=== PATIENT | male | born 1960 | race Caucasian/White ===

== ENCOUNTER 2020-10-27 08:40 | Outpatient (REF) | payer OTHER, SELFPAY ==
--- NOTE | ~2020-10-27 | XR_ITS ---
EXAMINATION: XR knee standing BI, XR knee LT 2V CLINICAL INFORMATION: Reason for Exam M25.569 - Pain in unspecified knee COMPARISON: None available at the time of this dictation. TECHNIQUE: frontal, lateral, tunnel and patella sunrise views FINDINGS: BONES: No fracture or dislocation is present. JOINTS: Mild narrowing of joint spaces suggest mild degenerative osteoarthritis. Small knee joint effusion. SOFT TISSUE: Normal XR/XR knee LT 2V IMPRESSION: Mild degenerative osteoarthritis medial more than lateral compartment symmetrically involving both knees. Small knee joint effusion.
--- NOTE | ~2020-10-27 | XR_ITS ---
EXAMINATION: XR knee standing BI, XR knee LT 2V CLINICAL INFORMATION: Reason for Exam M25.569 - Pain in unspecified knee COMPARISON: None available at the time of this dictation. TECHNIQUE: frontal, lateral, tunnel and patella sunrise views FINDINGS: BONES: No fracture or dislocation is present. JOINTS: Mild narrowing of joint spaces suggest mild degenerative osteoarthritis. Small knee joint effusion. SOFT TISSUE: Normal XR/XR knee standing BI IMPRESSION: Mild degenerative osteoarthritis medial more than lateral compartment symmetrically involving both knees. Small knee joint effusion.
== END 2020-10-27 08:41 | disposition home or self-care (01) ==
LOC: HO.HOSX 08:40
PROVIDERS: Visit Provider Physician Assistant
DX: M17.12 Unilateral primary osteoarthritis, left knee (principal)
CPT/HCPCS: 20610; 73560; 73565; J1040

== ENCOUNTER 2020-11-14 06:08 | Outpatient (REF) | payer OTHER, SELFPAY ==
[2020-11-14 11:15] LABS: MANUAL DIFF FLAG NO
[2020-11-14 11:22] LABS: Basophils Percent Auto 0.5 % (0-2); Eosinophils Absolute Auto 0.1 X10*3/uL (0.0-0.4); Eosinophils Percent Auto 2.2 % (0-4); Hematocrit 46.8 % (42-52); Hemoglobin 15.9 g/dl (14.0-18.0); Lymphocytes Absolute Auto 1.5 X10*3/uL (1.2-4.9); Lymphocytes Percent Auto 35.7 % (20-40); Mean Corpuscular Hemoglobin 31.5 pg (27.0-33.0); Mean Corpuscular Volume 92.9 fL (80-98); Mean Platelet Volume 9.5 fL (9.4-12.4); Monocytes Absolute Auto 0.4 X10*3/uL (0.1-1.2); Monocytes Percent Auto 8.8 % (2-11); Neutrophils Absolute Auto 2.2 X10*3/uL (2.0-8.3); Neutrophils Percent Auto 52.8 % (45-73); Platelet Count 248 X10*3/uL (160-400); Red Blood Count 5.04 X10*6/uL (4.60-5.80); Red Cell Distribution Width 12.2 % (11.0-16.0); White Blood Count 4.1 X10*3/uL (4.8-10.8)
[2020-11-14 11:55] LABS: Alanine Aminotransferase 35 U/L (0-40); Albumin Level 4.5 g/dL (3.5-5.0); Alkaline Phosphatase 53 U/L (39-117); Anion Gap 13 (12-20); Aspartate Amino Transferase 20 U/L (5-37); Bilirubin Total 0.7 mg/dL (0.0-1.0); Blood Urea Nitrogen 15 mg/dL (9-16); C Reactive Protein 0.09 mg/dL (< or = 0.50); Calcium 9.1 mg/dL (8.4-10.2); Carbon Dioxide 28 mmol/L (22-29); Chloride 103 mmol/L (96-108); Cholesterol 243 mg/dL; Estimated Glomerular Filt Rate > 60; Glucose Fasting 101 mg/dL (60-99); HDL Cholesterol 51 mg/dL; LDL Cholesterol Calculated 153 mg/dl; Rheumatoid Factor < 15.0 IU/mL (<15.0); Sodium 140 mmol/L (135-145); Triglycerides 197 mg/dL
[2020-11-14 11:56] LABS: Glucose Urine UA NEG (NEG); Leukocyte Esterase Urine NEG (NEG); Nitrite Urine NEG (NEG); PH 5.5 (5.0-8.0); Specific Gravity - Urine >= 1.030 (1.005-1.025); Urine Blood NEG (NEG); Urine Ketones NEG (NEG); Urine Protein NEG (NEG-TRACE)
[2020-11-14 11:58] LABS: Appearance Urine CLOUDY; Color Urine YELLOW
[2020-11-14 12:18] LABS: Prostate Specific Antigen Scr 0.54 ng/mL (<0.05-4.0); TSH reflex Free T4 1.54 uIU/mL (0.32-4.0); Vitamin D 25-OH Total 30.4 ng/mL (>30)
[2020-11-14 12:19] LABS: RBC Urine 0-2 /HPF (0); Squamous Epithelial Cell Urine TRACE /LPF; WBC Urine 0-2 /HPF (0-4)
[2020-11-14 13:01] LABS: Folate 19.9 ng/mL (> or = 4.0); Vitamin B12 419 pg/mL (200-900)
[2020-11-15 09:36] LABS: Lyme Abs Screen <0.90 index
== END 2020-11-14 06:09 | disposition home or self-care (01) ==
LOC: HO.HMGCLDS 06:08
PROVIDERS: PCP Internal Medicine; Visit Provider Internal Medicine
DX: Z00.00 Encounter for general adult medical examination without abnormal findings (principal); Z12.5 Encounter for screening for malignant neoplasm of prostate; M25.50 Pain in unspecified joint; M79.10 Myalgia, unspecified site
CPT/HCPCS: 36415; 80053; 80061; 81001; 82306; 82550; 82607; 82746; 84153; 84443; 85025; 86140; 86431; 86617; 86618

== ENCOUNTER 2021-01-10 13:35 | Outpatient (REF) | payer OTHER, SELFPAY ==
[2021-01-10 16:36] LABS: C Reactive Protein 0.18 mg/dL (< or = 0.50); Rheumatoid Factor < 15.0 IU/mL (<15.0)
[2021-01-10 17:41] LABS: Erythrocyte Sedimentation Rate 5 MM/HR (0-15)
[2021-01-14 15:52] LABS: Anti Nuclear Antibody Screen NEGATIVE (NEGATIVE)
[2021-01-16 08:02] LABS: Testosterone, Free 42.6 pg/mL (35.0-155.0); Testosterone, Total 384 ng/dL (250-1100)
== END 2021-01-10 13:36 | disposition home or self-care (01) ==
LOC: HO.HMGCLDS 13:35
PROVIDERS: PCP Internal Medicine; Visit Provider Internal Medicine
DX: M25.50 Pain in unspecified joint (principal); M79.10 Myalgia, unspecified site; R29.898 Other symptoms and signs involving the musculoskeletal system
CPT/HCPCS: 36415; 84402; 84403; 85652; 86038; 86039; 86140; 86431

== ENCOUNTER 2021-01-17 16:00 | Outpatient (RCR) | payer OTHER, SELFPAY ==
--- NOTE | 2020-11-14 16:13 | MHC.PT.EP ---
[facility] [place] Office [place] Office [place] Office [address] Shreya Anderson [address] [phone] F: [phone] F: [phone] F: [phone] F: [phone] Physical Therapy Plan of Care Date of Evaluation: Date of Surgery: Diagnosis: left knee pain Assessment: 59 y/o male referred to PT with left knee pain. Of note, pt reports other issues that he is concerned about and will see / Earnestine in 2 weeks regarding increasing muscle weakness B LE and worsening balance. He also fell 2 weeks ago 4' off ladder landing on his L side resulting in back pain and R foot numbness that is gradually improving. His knee pain and B LE weakness is resulting in difficulty with stairs, stepping over objects, walking, completing golf swing, and getting on/off floor. Examination shows decreased B hip strength, impaired balance especially with eyes closed, 3 beats of ankle clonus, coordination WNL, and impaired gait pattern. Recommend PT 2x/week for 5 weeks to address impairments, implement HEP, and optimize functional mobility. Frequency and Duration: The patient will be seen 2x/week for 5 weeks Short Term Goals: 3 weeks -I with HEP -Pt will improve hip strength by one MMT grade Medical Reception Goals: 5 weeks - I with HEP and self management of sx -pt will be able to balance wiht feet together and eyes closed > 60seconds with min-no sway -Pt will be able to ascend/descend stairs without railing Treatment Plan: Modalities to reduce pain, spasms and effusion. Manual therapy to restore motion and function. Therapeutic exercise to improve strength and flexibility. Neuromuscular re-education for posture and balance. Therapeutic activities to return to functional activities of daily living. Electronically signed by: Yanira Ho PT Please sign and return to therapist. Thank you for your referral.
--- NOTE | 2020-11-30 10:34 | MHC.PT.DC ---
[facility] [place] Office [place] Office [place] Office [address] Shreya Anderson 140 [facility] [phone] F: [phone] F: [phone] F: [phone] F: [phone] Physical Therapy Discharge Report Diagnosis: left knee pain Date of Surgery: Date of Evaluation: 11/14/20 Date of Discharge: 11/30/20 Treatments to Date: 3 Cancellations to Date: 0 No Shows to Date: 0 Discharge Status: Independent with HEP Patient Elected to Stop Discharge Summary: Pt called to self d/c reporting insurance co-pay is too much at this time. He will continue with HEP. Electronically signed by: Yanira Ho PT Please sign and return to therapist. Thank you for your referral.
--- NOTE | 2021-05-23 12:51 | MHC.PT.DC ---
[facility] [place] Office [place] Office [place] Office [address] Shreya Anderson 140 [facility] [phone] F: [phone] F: [phone] F: [phone] F: [phone] Physical Therapy Discharge Report Diagnosis: left knee pain Date of Surgery: Date of Evaluation: 11/14/20 Date of Discharge: 05/23/21 Treatments to Date: 11 Cancellations to Date: 0 No Shows to Date: 0 Discharge Status: Improved Function Independent with HEP Discharge Summary: D/c to I HEP and improved function Electronically signed by: Yanira Ho PT Please sign and return to therapist. Thank you for your referral.
== END 2021-05-23 12:51 | disposition home or self-care (01) ==
LOC: HO.PT 16:00
PROVIDERS: Visit Provider Physician Assistant
DX: M17.12 Unilateral primary osteoarthritis, left knee (principal); M25.569 Pain in unspecified knee
CPT/HCPCS: 97110; 97112; 97161; 97530

== ENCOUNTER 2021-07-16 16:00 | Outpatient (RCR) | payer OTHER, SELFPAY | END 2021-07-26 11:16 | disposition home or self-care (01) | LOC: HO.PT 16:00 | PROVIDERS: PCP Internal Medicine; Visit Provider Neurological Surgery | DX: M47.816 Spondylosis without myelopathy or radiculopathy, lumbar region (principal) | CPT/HCPCS: 97014; 97110; 97161; 97530 ==

== ENCOUNTER → 2021-11-20 13:15 | Outpatient (BNVA) | payer OTHER, SELFPAY | PROVIDERS: PCP Internal Medicine; Visit Provider Physician Assistant | DX: M17.12 Unilateral primary osteoarthritis, left knee (principal) | CPT/HCPCS: 20610; J1040 ==

== ENCOUNTER 2022-01-24 06:04 | Outpatient (REF) | payer OTHER, SELFPAY ==
[2022-01-24 11:22] LABS: MANUAL DIFF FLAG NO
[2022-01-24 11:31] LABS: Basophils Percent Auto 0.7 % (0-2); Eosinophils Absolute Auto 0.3 X10*3/uL (0.0-0.4); Eosinophils Percent Auto 6.7 % (0-4); Hematocrit 44.7 % (42.0-52.0); Hemoglobin 15.4 g/dl (14.0-18.0); Imm Gran Abs Auto 0.01 X10*3/uL (0.00-0.03); Imm Gran Pct Auto 0.2 % (0.0-0.4); Lymphocytes Absolute Auto 1.6 X10*3/uL (1.2-4.9); Mean Corpuscular HGB Conc 34.5 g/dl (31.0-36.0); Mean Corpuscular Hemoglobin 32.3 pg (27.0-33.0); Mean Corpuscular Volume 93.7 fL (80.0-98.0); Monocytes Absolute Auto 0.4 X10*3/uL (0.1-1.2); Monocytes Percent Auto 9.7 % (2-11); Neutrophils Percent Auto 46.7 % (45-73); Platelet Count 246 X10*3/uL (160-400); Red Blood Count 4.77 X10*6/uL (4.60-5.80); Red Cell Distribution Width 12.3 % (11.0-16.0); White Blood Count 4.3 X10*3/uL (4.8-10.8)
[2022-01-24 11:54] LABS: Alanine Aminotransferase 26 U/L (0-40); Albumin Level 4.3 g/dL (3.5-5.0); Alkaline Phosphatase 52 U/L (39-117); Anion Gap 11 (12-20); Aspartate Amino Transferase 18 U/L (5-37); Bilirubin Total 0.7 mg/dL (0.0-1.0); Blood Urea Nitrogen 16 mg/dL (9-16); Carbon Dioxide 28 mmol/L (22-29); Chloride 105 mmol/L (96-108); Cholesterol 235 mg/dL; Estimated Glomerular Filt Rate > 60; Glucose Fasting 97 mg/dL (60-99); HDL Cholesterol 50 mg/dL; LDL Cholesterol Calculated 157 mg/dl; Potassium 4.2 mmol/L (3.3-5.1); Sodium 140 mmol/L (135-145); Total Protein 6.8 g/dL (6.5-8.0); Triglycerides 144 mg/dL
[2022-01-24 12:17] LABS: PSA,Total (Free>4and<10) 0.48 ng/mL (0.00-4.00)
== END 2022-01-24 06:05 | disposition home or self-care (01) ==
LOC: HO.HMGCLDS 06:04
PROVIDERS: Visit Provider Internal Medicine
DX: Z00.00 Encounter for general adult medical examination without abnormal findings (principal); Z12.5 Encounter for screening for malignant neoplasm of prostate
CPT/HCPCS: 36415; 80053; 80061; 84153; 85025

== ENCOUNTER 2022-03-10 11:17 | Emergency (ER) | payer OTHER, SELFPAY ==
--- NOTE | ~2022-03-10 | CT_ITS ---
CT HEAD WITHOUT IV CONTRAST CT CERVICAL SPINE WITHOUT IV CONTRAST INDICATION: Fall downstairs. COMPARISON: None available. TECHNIQUE: Multidetector CT acquisitions of the head and cervical spine were obtained without IV contrast. Multiplanar reformats were acquired and utilized for image interpretation. This CT examination was performed using dose optimization techniques as appropriate, variously including the following: *Automated exposure control *Adjustment of mA and/or kV according to patient size (this includes techniques or standardized protocols for targeted exams where dose is matched to indication/reason for exam; i.e. extremities or head) *Use of iterative reconstruction technique FINDINGS: HEAD: There is no intracranial hemorrhage, hydrocephalus, extra-axial surface collection, midline shift, or other herniation pattern. Ghosh to white matter differentiation is diffusely maintained without evidence of an evolved acute territorial infarct. The basilar cisterns are preserved. No significant soft tissue abnormality. No acute osseous abnormality. The paranasal sinuses and the mastoid air cells are well aerated. CERVICAL SPINE: Straightening the cervical lordosis. ACDF changes at C4-C5. At the C3-C4 junctional level, a central disc protrusion likely flattens the ventral cord and advanced spondylitic changes result in severe right-sided bony foraminal stenosis. Surgical hardware is intact and there is no evidence of hardware loosening. 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 No acute fractures no acute subluxations. Hypertrophic degenerative changes involving the atlantodental interval. Craniocervical junction is unremarkable. CT/CT head/brain wo con IMPRESSION: - No acute intracranial findings. - No acute osseous findings within the cervical spine. ACDF changes at C4-C5. At the C3-C4 junctional level, a central disc protrusion likely flattens the ventral cord and advanced spondylitic changes result in severe right-sided bony foraminal stenosis.
--- NOTE | ~2022-03-10 | CT_ITS ---
EXAMINATION: CT CHEST, ABDOMEN, AND PELVIS WITH CONTRAST CLINICAL INFORMATION: Left upper quadrant abdominal pain questionable splenic laceration, ribs trauma questionable fracture COMPARISON: CT scan of abdomen from 11/23/2018 TECHNIQUE: Multidetector volumetric CT imaging of the chest, abdomen, and pelvis was obtained after the administration of 85 mL of Omnipaque 300 intravenous contrast without immediate adverse reactions. Axial MIP volume rendering provided. Sagittal and coronal reformatted images were obtained. This CT examination was performed using dose optimization techniques as appropriate, variously including the following: *Automated exposure control *Adjustment of mA and/or kV according to patient size (this includes techniques or standardized protocols for targeted exams where dose is matched to indication/reason for exam; i.e. extremities or head) *Use of iterative reconstruction technique DLP: 963 mGy-cm FINDINGS: LUNGS: There is 0.3 cm nodule seen in the right upper lobe adjacent to the minor fissure on image 78 series 11, other 0.1 cm nodule seen in the right upper lobe adjacent to the major fissure on image 88 series 11, 0.2 mm nodule seen on image 95 series 11 there is a calcified subpleural nodule in the right lower lobe on image 98 series 11 MEDIASTINUM: The mediastinum appears unremarkable. PLEURA: There is no pleural effusion. No pleural mass or thickening. AXILLA: No lymphadenopathy. LIVER, GALLBLADDER, AND BILIARY TREE: The liver appears unremarkable in size, shape, and attenuation. No focal hepatic lesion or biliary ductal dilatation is appreciated. Unremarkable appearance of the gallbladder. PANCREAS: Unremarkable SPLEEN: Unremarkable ADRENAL GLANDS: Unremarkable KIDNEYS AND URETERS: The kidneys appear unremarkable in size, shape, and attenuation. No hydronephrosis, hydroureter, or calculi seen. BLADDER: Unremarkable GASTROINTESTINAL TRACT: The small and large bowel appear unremarkable. ABDOMINAL WALL: No significant hernia is appreciated. LYMPH NODES: No evidence of adenopathy by size criteria. VASCULAR: Unremarkable. PELVIC VISCERA: Unremarkable OSSEOUS STRUCTURES: There are mild degenerative changes in lumbar spine and there is bone island in L3 vertebral body and mammogram bone island seen and T9 vertebral body on the. CT/CT abdomen pelvis w con IMPRESSION: Lung nodules as described. No evidence of fractures. Unremarkable abdomen.
--- NOTE | ~2022-03-10 | CT_ITS ---
CT HEAD WITHOUT IV CONTRAST CT CERVICAL SPINE WITHOUT IV CONTRAST INDICATION: Fall downstairs. COMPARISON: None available. TECHNIQUE: Multidetector CT acquisitions of the head and cervical spine were obtained without IV contrast. Multiplanar reformats were acquired and utilized for image interpretation. This CT examination was performed using dose optimization techniques as appropriate, variously including the following: *Automated exposure control *Adjustment of mA and/or kV according to patient size (this includes techniques or standardized protocols for targeted exams where dose is matched to indication/reason for exam; i.e. extremities or head) *Use of iterative reconstruction technique FINDINGS: HEAD: There is no intracranial hemorrhage, hydrocephalus, extra-axial surface collection, midline shift, or other herniation pattern. Ghosh to white matter differentiation is diffusely maintained without evidence of an evolved acute territorial infarct. The basilar cisterns are preserved. No significant soft tissue abnormality. No acute osseous abnormality. The paranasal sinuses and the mastoid air cells are well aerated. CERVICAL SPINE: Straightening the cervical lordosis. ACDF changes at C4-C5. At the C3-C4 junctional level, a central disc protrusion likely flattens the ventral cord and advanced spondylitic changes result in severe right-sided bony foraminal stenosis. Surgical hardware is intact and there is no evidence of hardware loosening. 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 No acute fractures no acute subluxations. Hypertrophic degenerative changes involving the atlantodental interval. Craniocervical junction is unremarkable. CT/CT cervical spine wo con IMPRESSION: - No acute intracranial findings. - No acute osseous findings within the cervical spine. ACDF changes at C4-C5. At the C3-C4 junctional level, a central disc protrusion likely flattens the ventral cord and advanced spondylitic changes result in severe right-sided bony foraminal stenosis.
--- NOTE | 2022-03-10 11:25 | ED.GENADULT ---
HPI - General Adult General Stated complaint: L rib pain ? Fracture Time Seen by Provider: 03/10/22 11:25 Source: patient Mode of arrival: ambulatory Limitations: no limitations Related Data Home Medications Medication Instructions Recorded Confirmed naproxen 500 mg tablet 500 mg PO BID PRN 01/10/22 01/10/22 Allergies Allergy/AdvReac Type Severity Reaction Status Date / Time No Known Allergies Allergy Verified 01/10/22 09:58 [No Known Allergies*] PMFSH Past Medical History Medical History Annual physical exam Arthralgia Cervical stenosis of spine Cluster headache Hyperlipidemia Leg weakness, bilateral Myalgia Surgical History Hx of neck surgery Family History Family History Mother No problems noted. Father No problems noted. Social History Social History Housing: House Alcohol intake: current Patient Tobacco Use Status: Never used Tobacco e-Cigarette/Vaping Use: Never Used Second Hand Smoke Exposure: No Current occupational status: employed Current occupation: [employer] Cognitive needs: No Hearing needs: No Vision needs: No Discharge Plan Discharge Prescriptions: No Action naproxen 500 mg tablet 500 mg PO BID PRN
[2022-03-10 11:31] VITALS: BP 165/89; PULSE 78; RESP 18; TEMP 36.7; O2SAT 98; BMI 27.1
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
--- NOTE | 2022-03-10 11:48 | ECG_ITS ---
Test Reason : FALL Blood Pressure : / mmHG Vent. Rate : 063 BPM Atrial Rate : 063 BPM P-R Int : 196 ms QRS Dur : 110 ms QT Int : 396 ms P-R-T Axes : 040 -23 012 degrees QTc Int : 405 ms Normal sinus rhythm Inferior infarct , age undetermined Abnormal ECG No previous ECGs available Referred By: Edgar Martinez Electronically Signed By:GASTON MCMAHON
[2022-03-10] MEDS: 0.9 % Sodium Chloride 1,000 ML 999 ML IV (12:10)
[2022-03-10 12:11] LABS: MANUAL DIFF FLAG NO
[2022-03-10 12:12] LABS: Basophils Percent Auto 0.6 % (0-2); Eosinophils Absolute Auto 0.1 X10*3/uL (0.0-0.4); Eosinophils Percent Auto 1.1 % (0-4); Hematocrit 46.3 % (42.0-52.0); Hemoglobin 16.1 g/dl (14.0-18.0); Imm Gran Abs Auto 0.02 X10*3/uL (0.00-0.03); Imm Gran Pct Auto 0.3 % (0.0-0.4); Lymphocytes Absolute Auto 1.3 X10*3/uL (1.2-4.9); Mean Corpuscular HGB Conc 34.8 g/dl (31.0-36.0); Mean Corpuscular Hemoglobin 31.8 pg (27.0-33.0); Mean Corpuscular Volume 91.3 fL (80.0-98.0); Mean Platelet Volume 9.4 fL (9.4-12.4); Monocytes Absolute Auto 0.5 X10*3/uL (0.1-1.2); Monocytes Percent Auto 7.4 % (2-11); Neutrophils Absolute Auto 4.4 x10*3/uL (2.0-8.3); Neutrophils Percent Auto 69.6 % (45-73); Platelet Count 231 X10*3/uL (160-400); Red Blood Count 5.07 X10*6/uL (4.60-5.80); Red Cell Distribution Width 12.3 % (11.0-16.0); White Blood Count 6.3 X10*3/uL (4.8-10.8)
[2022-03-10 12:19] LABS: Prothrombin Time 11.1 SEC (10.0-13.1)
[2022-03-10 12:22] LABS: Partial Thromboplastin Time 30.4 SEC (26.0-36.4)
[2022-03-10 12:27] LABS: Alanine Aminotransferase 26 U/L (0-40); Albumin Level 4.4 g/dL (3.5-5.0); Alkaline Phosphatase 55 U/L (39-117); Anion Gap 13 (12-20); Aspartate Amino Transferase 17 U/L (5-37); Bilirubin Total 0.4 mg/dL (0.0-1.0); Blood Urea Nitrogen 14 mg/dL (9-16); Calcium 9.4 mg/dL (8.4-10.2); Carbon Dioxide 27 mmol/L (22-29); Chloride 106 mmol/L (96-108); Creatinine Clr Calc Pharmacy 107.2; Estimated Glomerular Filt Rate > 60; Glucose Random 127 mg/dL (60-115); Potassium 3.9 mmol/L (3.3-5.1); Sodium 142 mmol/L (135-145)
[2022-03-10 12:33] LABS: Troponin-I High Sensitivity < 3.5 ng/L (<3.5-35.0)
[2022-03-10] MEDS: oxyCODONE HCl Immed Release 5 MG TABLET PO (13:11)
[2022-03-10] MEDS: iohexoL 350 MG/ML 75 ML INFUS..BTL 85 ML IV (13:16)
[2022-03-10 14:12] VITALS: BP 148/86; PULSE 63; RESP 18; TEMP 36.7; O2SAT 98
[2022-03-10] MEDS: Ketorolac Tromethamine 30 MG/ML VIAL IVPUSH (14:25)
== END 2022-03-10 15:31 | disposition home or self-care (01) ==
PROVIDERS: Physician Assistant; Emergency Provider Emergency Medicine; PCP Internal Medicine
DX: S20.213A Contusion of bilateral front wall of thorax, initial encounter (principal); R07.89 Other chest pain; R51.9 Headache, unspecified; M54.2 Cervicalgia; R10.9 Unspecified abdominal pain; M54.6 Pain in thoracic spine; X58.XXXA Exposure to other specified factors, initial encounter; Y93.9 Activity, unspecified; Y92.9 Unspecified place or not applicable; Y99.9 Unspecified external cause status; Z79.899 Other long term (current) drug therapy
CPT/HCPCS: 36415; 70450; 71260; 72125; 74177; 80053; 84484; 85025; 85610; 85730; 93005; 96365; 96375; 99284; J1885; Q9967

== ENCOUNTER → 2022-06-07 15:15 | Outpatient (BNVA) | payer OTHER, SELFPAY | PROVIDERS: PCP Internal Medicine; Visit Provider Physician Assistant | DX: M17.12 Unilateral primary osteoarthritis, left knee (principal) | CPT/HCPCS: 20610; J1040 ==

== ENCOUNTER 2022-06-18 06:20 | Outpatient (REF) | payer OTHER, SELFPAY ==
[2022-06-18 12:07] LABS: Alanine Aminotransferase 24 U/L (0-40); Albumin Level 4.3 g/dL (3.5-5.0); Alkaline Phosphatase 55 U/L (39-117); Anion Gap 13 (12-20); Aspartate Amino Transferase 17 U/L (5-37); Bilirubin Total 0.5 mg/dL (0.0-1.0); Blood Urea Nitrogen 13 mg/dL (9-16); Calcium 9.2 mg/dL (8.4-10.2); Carbon Dioxide 27 mmol/L (22-29); Chloride 104 mmol/L (96-108); Cholesterol 235 mg/dL; Estimated Glomerular Filt Rate > 60; Glucose Fasting 101 mg/dL (60-99); HDL Cholesterol 58 mg/dL; LDL Cholesterol Calculated 149 mg/dl; Potassium 4.3 mmol/L (3.3-5.1); Sodium 140 mmol/L (135-145); Total Protein 6.7 g/dL (6.5-8.0); Triglycerides 143 mg/dL
[2022-06-18 13:23] LABS: Estimated Average Glucose 103 mg/dL; Hemoglobin A1c % 5.2 %
== END 2022-06-18 06:21 | disposition home or self-care (01) ==
LOC: HO.HMGCLDS 06:20
PROVIDERS: PCP Internal Medicine; Visit Provider Internal Medicine
DX: R73.9 Hyperglycemia, unspecified (principal); E78.5 Hyperlipidemia, unspecified
CPT/HCPCS: 36415; 80053; 80061; 83036

== ENCOUNTER 2022-07-09 18:02 | Outpatient (REF) | payer OTHER, SELFPAY ==
--- NOTE | ~2022-07-09 | MR_ITS ---
EXAMINATION: MR KNEE WITHOUT CONTRAST, LEFT CLINICAL INFORMATION: Left knee pain, swelling. Osteoarthritis. COMPARISON: Left knee radiographs dated 10/27/2020. TECHNIQUE: MRI of the knee without contrast was performed using routine sequences on a high-field scanner. FINDINGS: MENISCI: Medial Meniscus: Attenuation and irregularity of the posterior horn and root, consistent with irregular inner margin tearing. The meniscal body is medially extruded with a superiorly displaced meniscal flap measuring up to 1.0 cm in craniocaudal dimension. There is peripheral longitudinal tearing contacting both the femoral and tibial articular surfaces. Lateral Meniscus: Focal inner margin oblique tear of the meniscal body and posterior horn. Fraying of the anterior root. LIGAMENTS: Cruciate: Diffuse thickening and increased T2 signal throughout the anterior cruciate ligament with mild degenerative cystic change in the tibial tuberosity, consistent with mucoid degeneration. Intact posterior cruciate ligament. Collateral: Intact. EXTENSOR MECHANISM: Superior patellar enthesophytes. Intact quadriceps and patellar tendons. ARTICULAR CARTILAGE/BONE: Patellofemoral Compartment: Mild patellar articular cartilage signal heterogeneity. Central trochlear signal heterogeneity and surface irregularity extending to the medial trochlea. Small marginal osteophytes. Medial Compartment: Mild weightbearing articular cartilage signal heterogeneity and surface irregularity with small marginal osteophytes. Lateral Compartment: Minimal lateral tibial plateau articular cartilage thinning with near full-thickness loss posteriorly. Tiny marginal osteophytes. JOINT FLUID AND BURSAE: Small joint effusion. MR/MR knee LT wo con IMPRESSION: 1. Irregular inner margin tearing of the medial meniscus posterior horn and root with medial extrusion of the meniscal body and a superiorly displaced meniscal flap. Peripheral longitudinal tearing contacting both the femoral and tibial articular surfaces. 2. Focal inner margin oblique tear of the lateral meniscal body and posterior horn with fraying of the anterior root. 3. Mucoid degeneration of the anterior cruciate ligament. 4. Mild tricompartmental osteoarthritis. Small joint effusion.
== END 2022-07-09 18:03 | disposition home or self-care (01) ==
LOC: HO.MRI 18:02
PROVIDERS: Visit Provider Physician Assistant
DX: M17.12 Unilateral primary osteoarthritis, left knee (principal)
CPT/HCPCS: 73721

== ENCOUNTER → 2022-08-01 15:29 | Outpatient (BNVA) | payer OTHER, SELFPAY | PROVIDERS: PCP Internal Medicine; Visit Provider Orthopaedic Surgery | DX: Z13.89 Encounter for screening for other disorder (principal) ==

== ENCOUNTER → 2022-10-14 14:59 | Outpatient (BNVA) | payer OTHER, SELFPAY | PROVIDERS: PCP Internal Medicine; Visit Provider Physician Assistant | DX: Z13.89 Encounter for screening for other disorder (principal) ==

== ENCOUNTER 2022-10-30 06:04 | Day surgery (SDC) | payer OTHER, SELFPAY ==
[2022-10-24 15:31] VITALS: BMI 27.6
[2022-10-25 10:01] VITALS: BMI 27.5
--- NOTE | 2022-10-29 08:54 | P.CONAN_ITS ---
Documented by User: Thuy Lynch NP 10/29/22 08:57 HPI - Anesthesia Eval Consult details Narrative: 61yo M for Left Knee Arthroscopy PMFSH Active Problems Active Problems: All Active Problems (Updated 10/07/22 @ 12:22 by Rowan Colby MD) Knee pain (Acute) Osteoarthritis of left knee (Acute) Hx of colonoscopy (Acute) Hyperglycemia (Acute) Tear of meniscus of left knee (Acute) Internal derangement of left knee (Acute) Abnormal EKG (Acute) Cluster headache (Acute) Cervical stenosis of spine (Acute) Hyperlipidemia (Acute) Leg weakness, bilateral (Acute) Arthralgia (Acute) Myalgia (Acute) Annual physical exam (Acute) Past Medical History Medical History Annual physical exam Arthralgia Cervical stenosis of spine Cluster headache Hyperlipidemia Leg weakness, bilateral Myalgia Family History Family History Mother No problems noted. Father No problems noted. Surgical History Surgical History (Updated 10/25/22 @ 10:00 by Marlys Lynch RN) History of bilateral carpal tunnel release Hx of neck surgery Social History Social History Housing: House Are you a primary client care specialist to a significant other at home: No Do you presently have visiting nurse or other home services: No Alcohol intake: current Patient Tobacco Use Status: Never used Tobacco e-Cigarette/Vaping Use: Never Used Second Hand Smoke Exposure: No Use of substances other than those prescribed or required for medical reasons: No Have you been hit, kicked, punched, or otherwise hurt by someone within the past year? If so, by whom?: No Are you DNR?: No Advance Directives: No Advance Directives Information Provided: Yes Advance Directives on File: No Recently lost weight without trying: No Nutrition Risks: No Nutritional Risk Poor oral hygiene: No Current occupational status: employed Current occupation: [employer] [place]/ right hand dominant Cognitive needs: No Hearing needs: No Vision needs: No Meds Allergies Allergy/AdvReac Type Severity Reaction Status Date / Time No Known Allergies Allergy Verified 10/14/22 15:07 [No Known Allergies*] Home Medications Medication Instructions Recorded Confirmed Last Taken Type verapamil 240 mg 24 hr 480 mg PO BID PRN Headache 10/07/22 10/25/22 Unknown History capsule,extended release Exam Exam Date and Time: October 29, 2022 0854 Height,Weight and Vital Signs: Height 5 ft 10 in Weight 87.09 kg Pertinent Lab Results Pertinent Lab Results: Laboratory Tests 03/10/22 06/18/22 12:04 06:30 WBC 6.3 Hgb 16.1 Hct 46.3 Plt Count 231 Sodium 140 Potassium 4.3 Chloride 104 Carbon Dioxide 27 BUN 13 Creatinine 0.80 Assessment and Plan Assessment Anesthesia Assessment: Chart Reviewed Documented by User: Angely Toney MD 10/30/22 08:01 [facility] Past Medical History Medical History Annual physical exam Arthralgia Cervical stenosis of spine Cluster headache Hyperlipidemia Leg weakness, bilateral Myalgia Family History Family History Mother No problems noted. Father No problems noted. Family history of problems with anesthesia: No Surgical History Surgical History (Updated 10/25/22 @ 10:00 by Marlys Lynch RN) History of bilateral carpal tunnel release Hx of neck surgery History of Problems with Anesthesia: No Social History Social History Housing: House Are you a primary client care specialist to a significant other at home: No Do you presently have visiting nurse or other home services: No Alcohol intake: current Patient Tobacco Use Status: Never used Tobacco e-Cigarette/Vaping Use: Never Used Second Hand Smoke Exposure: No Use of substances other than those prescribed or required for medical reasons: No Have you been hit, kicked, punched, or otherwise hurt by someone within the past year? If so, by whom?: No Are you DNR?: No Advance Directives: No Advance Directives Information Provided: Yes Advance Directives on File: No Recently lost weight without trying: No Nutrition Risks: No Nutritional Risk Poor oral hygiene: No Current occupational status: employed Current occupation: [employer] [place]/ right hand dominant Cognitive needs: No Hearing needs: No Vision needs: No Meds Allergies Allergy/AdvReac Type Severity Reaction Status Date / Time No Known Allergies Allergy Verified 10/14/22 15:07 [No Known Allergies*] Home Medications Medication Instructions Recorded Confirmed Last Taken Type verapamil 240 mg 24 hr 480 mg PO BID PRN Headache 10/07/22 10/25/22 Unknown History capsule,extended release Exam Airway Mallampati Class: II TM Dist: >3cm Neck ROM: Full Heart: rrr Lungs: cta Assessment and Plan Assessment Anesthesia Assessment: Anesthesia Plan Discussed Final Anesthetic Review Family History of Problems with Anesthesia: No History of Problems with Anesthesia: No NPO: Yes ASA Class: II and III Final Preanesthetic Review: No Changes in Pt Med Stat, Consent Obtained/Reviewed and Anes Risks/Benef Reviewed Patient Risk: Low Procedure Risk: Low Anesthetic Plan Anesthetic Plan: GA Disposition: Standard PACU
[2022-10-30 06:17] VITALS: BP 145/83; PULSE 63; RESP 18; TEMP 36.1; O2SAT 99
[2022-10-30] MEDS: Lactated Ringers 1,000 ML 100 ML IVCONT (06:37)
[2022-10-30 08:38] VITALS: BP 140/81; PULSE 76; RESP 16; TEMP 36.7; O2SAT 98
[2022-10-30 08:43] VITALS: BP 134/77; PULSE 66; RESP 16; O2SAT 96
[2022-10-30 08:48] VITALS: BP 135/90; PULSE 68; RESP 16; O2SAT 98
[2022-10-30 08:53] VITALS: BP 136/90; PULSE 64; RESP 16; O2SAT 97
[2022-10-30] MEDS: oxyCODONE HCl Immed Release 5 MG TABLET PO (09:03)
[2022-10-30 09:08] VITALS: BP 125/70; PULSE 61; RESP 16; TEMP 36.6; O2SAT 97
--- NOTE | 2022-10-30 16:13 | P.BOP_ITS ---
Brief Operative Note Date of Service: 10/30/22 Pre-op diagnosis: Left knee MMT Post-op diagnosis: other (Left knee MMT and knee OA) Procedure: Left knee partial medial meniscectomy and chondroplasty. Surgeon: Avni James MD Anesthesia: GETA Was an Stringer Machine Tender used for this Procedure?: No Estimated blood loss (mL): 5 Tourniquet time (min): 20 IV fluids (mL): 500 Pathology: none sent Condition: stable Disposition: PACU
--- NOTE | 2022-10-31 15:07 | W.PM.OPN ---
Operative Note Operative Note Date of Service: 10/30/22 Narrative: Date of Service: 10/30/22 Pre-op diagnosis: Left knee MMT Post-op diagnosis: other (Left knee MMT and knee OA) Procedure: Left knee partial medial meniscectomy and chondroplasty. Surgeon: Avni James MD Anesthesia: GETA Was an Emergency Medicine used for this Procedure?: No Estimated blood loss (mL): 5 Tourniquet time (min): 20 IV fluids (mL): 500 Pathology: none sent Condition: stable Disposition: PACU Procedure in detail: Patient was brought to the operating room placed supine on the arthroscopic table and prepped and draped in standard sterile fashion. A time-out was called to identify proper site proper procedure proper surgeon and IV antibiotics per weight were administered. I began by exsanguinating the limb and insufflating tourniquet to 300 mm Hg. Then made a standard anterolateral stab incision. knee was insufflated with water and 30 degree arthroscope was placed. There was grade 1 fibrillations of the patella but overall suprapatellar pouch was plane and the gutters were clean. I descended into the medial compartment where I made my medial portal under direct visualization. There was obvious of complex tear of the body and posterior horn of the medial meniscus. The oot was intact and there was grade 1 changes with some scattered grade 2 changes throughout the medial compartment. I used a combination of biter shaver and cautery to remove unstable portions of the meniscus. Proximally 40% meniscal volume was removed. Once I was happy with this the ACL was examined and found to be intact and the lateral compartment also was without the need for intervention. I then removed all instrumentation and closed the portals with skin glue. 25 mL of 2% Marcaine with epinephrine was injected into the joint and the surrounding soft tissues. Patient was then placed in sterile dressing extubated brought recovery room stable condition. There were no known complications.
== END 2022-10-30 10:08 | disposition home or self-care (01) ==
LOC: HO.SSS 06:04
PROVIDERS: PCP Internal Medicine; Visit Provider Orthopaedic Surgery
PROC: (CPT 29870; principal; 2022-10-30 07:30)
DX: S83.232A Complex tear of medial meniscus, current injury, left knee, initial encounter (principal); M17.12 Unilateral primary osteoarthritis, left knee; M23.92 Unspecified internal derangement of left knee; R53.1 Weakness; M79.10 Myalgia, unspecified site; G44.009 Cluster headache syndrome, unspecified, not intractable; E78.5 Hyperlipidemia, unspecified; Z79.899 Other long term (current) drug therapy; W19.XXXA Unspecified fall, initial encounter; Y93.9 Activity, unspecified; Y92.9 Unspecified place or not applicable; Y99.8 Other external cause status
CPT/HCPCS: 29881; J0171; J0690; J1100; J1885; J2405; J2795; J3010

== ENCOUNTER → 2022-11-11 12:29 | Outpatient (BNVA) | payer OTHER, SELFPAY | PROVIDERS: PCP Internal Medicine; Visit Provider Physician Assistant | DX: Z13.89 Encounter for screening for other disorder (principal) ==

== ENCOUNTER → 2022-12-05 10:20 | Outpatient (BNVA) | payer OTHER, SELFPAY | PROVIDERS: PCP Internal Medicine; Visit Provider Orthopaedic Surgery ==

== ENCOUNTER 2022-12-06 11:00 | Outpatient (RCR) | payer OTHER, SELFPAY ==
--- NOTE | 2022-11-05 11:08 | MHC.PT.EP ---
[facility] [employer] [place] Office [place] Office [place] Office [address] [phone] F: [phone] F: [phone] F: [phone] F: [phone] Physical Therapy Plan of Care Date of Evaluation: Date of Surgery: 10/30/22 Diagnosis: L KNEE MEDIAL MENISCECTOMY AND CHONDROPLASTY Assessment: Pt IS 61 YO M REFERRED TO PT FROM [facility]) S/P L MEDIAL MENISCECTOMY ON 10/30/22. PRESENTS WITH KNEE SWELLING, DECREASED ROM AND STRENGTH L LE WITH PAIN, LIMITED ADLS. GOOD PT CANDIDATE TO ADDRESS THESE ISSUES Frequency and Duration: The patient will be seen 2X/WK X 4 WKS Short Term Goals: 1. INCREASED AWARENESS KNEE CARE 2. Pt TO REPORT IMPROVED STAIR NEGOTIATION 3. I HEP WITH DC EX PLAN Half-Way Goals: 1. L KNEE ROM 0-130 2. DECREASED L KNEE PAIN AT LEAST 50% WITH ADLS 3. DECREASED L KNEE Treatment Plan: Modalities to reduce pain, spasms and effusion. Manual therapy to restore motion and function. Therapeutic exercise to improve strength and flexibility. Neuromuscular re-education for posture and balance. Therapeutic activities to return to functional activities of daily living. Electronically signed by: LILO ROBERTS PT Please sign and return to therapist. Thank you for your referral.
--- NOTE | 2022-12-06 14:24 | MHC.PT.DC ---
[facility] [place] Office [place] Office [place] Office [address]reya [address] [phone] F: [phone] F: [phone] F: [phone] F: [phone] Physical Therapy Discharge Report Diagnosis: L KNEE MEDIAL MENISCECTOMY AND CHONDROPLASTY Date of Surgery: 10/30/22 Date of Evaluation: 11/05/22 Date of Discharge: Treatments to Date: 10 Cancellations to Date: No Shows to Date: Discharge Status: Discharge Summary: HAS MET PT GOALS, GOOD PERF HEP. OFFERED 1 WK FU TO ENSURE [place] SINCE LAST BUCKLE EPISODE. Pt DECLINED. WILL WATCH AND CONTACT PT/ORTHO IF NEEDED Electronically signed by: Please sign and return to therapist. Thank you for your referral.
== END 2022-12-06 14:24 | disposition home or self-care (01) ==
LOC: HO.PT 11:00
PROVIDERS: PCP Internal Medicine; Visit Provider Orthopaedic Surgery
DX: M17.12 Unilateral primary osteoarthritis, left knee (principal)
CPT/HCPCS: 97110; 97140; 97161; 97530; 97535

== ENCOUNTER 2023-01-28 09:30 | Outpatient (REF) | payer OTHER, SELFPAY ==
[2023-01-28 11:20] LABS: MANUAL DIFF FLAG NO
[2023-01-28 11:23] LABS: Appearance Urine Clear; Color Urine Yellow; Glucose Urine UA Negative (Negative); Leukocyte Esterase Urine Negative (Negative); Nitrite Urine Negative (Negative); PH 6.5 (5.0-9.0); Urine Blood Negative (Negative); Urine Ketones Negative (Negative); Urine Protein Negative (Neg-Trace)
[2023-01-28 11:27] LABS: Bacteria Urine None Seen (None Seen); Hyaline Casts Urine 0-2 /LPF (0-2); RBC Urine 0-2 /HPF (0-2); Squamous Epithelial Cell Urine 0-2 /HPF (0-2); WBC Urine 0-5 /HPF (0-5)
[2023-01-28 11:30] LABS: Basophils Percent Auto 0.9 % (0-2); Eosinophils Absolute Auto 0.1 X10*3/uL (0.0-0.4); Eosinophils Percent Auto 2.3 % (0-4); Hematocrit 47.7 % (42.0-52.0); Hemoglobin 16.2 g/dl (14.0-18.0); Imm Gran Abs Auto 0.01 X10*3/uL (0.00-0.03); Imm Gran Pct Auto 0.2 % (0.0-0.4); Lymphocytes Absolute Auto 1.7 X10*3/uL (1.2-4.9); Lymphocytes Percent Auto 38.5 % (20-40); Mean Corpuscular Hemoglobin 31.8 pg (27.0-33.0); Mean Corpuscular Volume 93.7 fL (80.0-98.0); Mean Platelet Volume 9.4 fL (9.4-12.4); Monocytes Absolute Auto 0.3 X10*3/uL (0.1-1.2); Monocytes Percent Auto 7.9 % (2-11); Neutrophils Absolute Auto 2.2 x10*3/uL (2.0-8.3); Neutrophils Percent Auto 50.2 % (45-73); Platelet Count 250 X10*3/uL (160-400); Red Blood Count 5.09 X10*6/uL (4.60-5.80); Red Cell Distribution Width 12.3 % (11.0-16.0); White Blood Count 4.3 X10*3/uL (4.8-10.8)
[2023-01-28 11:53] LABS: Alanine Aminotransferase 25 U/L (0-40); Albumin Level 4.3 g/dL (3.5-5.0); Alkaline Phosphatase 46 U/L (39-117); Anion Gap 14 (12-20); Aspartate Amino Transferase 17 U/L (5-37); Bilirubin Total 0.7 mg/dL (0.0-1.0); Blood Urea Nitrogen 12 mg/dL (9-16); Calcium 9.6 mg/dL (8.4-10.2); Carbon Dioxide 26 mmol/L (22-29); Chloride 104 mmol/L (96-108); Cholesterol 249 mg/dL; Estimated Glomerular Filt Rate > 60; Glucose Fasting 85 mg/dL (60-99); HDL Cholesterol 60 mg/dL; LDL Cholesterol Calculated 167 mg/dl; Potassium 3.9 mmol/L (3.3-5.1); Sodium 140 mmol/L (135-145); Total Protein 6.9 g/dL (6.5-8.0); Triglycerides 111 mg/dL
[2023-01-28 12:36] LABS: PSA,Total (Free>4and<10) 0.63 ng/mL (0.00-4.00)
== END 2023-01-28 09:31 | disposition home or self-care (01) ==
LOC: HO.HMGCLDS 09:30
PROVIDERS: PCP Internal Medicine; Visit Provider Internal Medicine
DX: Z00.00 Encounter for general adult medical examination without abnormal findings (principal); R73.9 Hyperglycemia, unspecified; Z12.5 Encounter for screening for malignant neoplasm of prostate
CPT/HCPCS: 36415; 80053; 80061; 81001; 84153; 85025

== ENCOUNTER 2023-01-29 13:52 | Outpatient (AMB) | payer OTHER, SELFPAY ==
--- NOTE | 2023-01-29 14:08 | MHC.PC.OV ---
Vital Signs 01/29/23 14:13 Height 5 ft 10 in Weight 194 lb BMI 27.8 BP 128/74 Blood Pressure Location Lt brachial Position Sitting Pulse 73 Pulse Source Pulse Oximeter Pulse Oximetry (%) 98 Oxygen Delivery Method Room Air Intake Visit Reasons: PE needed latest Intake Note: Pt is here today for PE. Allergies No Known Allergies [No Known Allergies*] Allergy (Verified 01/29/23 14:14) Medication List - Last Reconciled 01/29/23 by Rowan Colby MD No Known Home Meds Tobacco use date assessed: 10/07/22 Dental Screening Dental Screen Date: 01/29/23 Did you have a dental visit in the last 12 months?: Yes Did you have a dental problem in the last 6 months where you did not have access to dental care?: No Was dental information given to patient?: Patient has dentist HPI PE needed latest HPI Details Pt presents for PE. Pt has an episode of cluster ISAAC and f/u with Dr. Meza. [facility] Medical History Annual physical exam Arthralgia Cervical stenosis of spine Cluster headache Hyperlipidemia Leg weakness, bilateral Myalgia Surgical History History of bilateral carpal tunnel release Hx of neck surgery Family History Mother No problems noted. Father No problems noted. Social History Housing: House Are you a primary medicare nurse to a significant other at home: No Do you presently have visiting nurse or other home services: No Alcohol intake: current Patient Tobacco Use Status: Current someday Tobacco user Tobacco use type: Cigar e-Cigarette/Vaping Use: Never Used Second Hand Smoke Exposure: No Current occupational status: employed Current occupation: [employer] [place]/ right hand dominant Cognitive needs: No Hearing needs: No Vision needs: No Questionnaire Thrive Questionnaire Date Thrive assessed: 10/07/22 AUDIT C Alcohol Use Questionnaire (AUDIT-C) 1. How often do you have a drink containing alcohol?: 2-4 times a month 2. How many drinks containing alcohol do you have on a typical day when you are drinking?: 1 or 2 Total Score: 2 MED-7 AMB Questionnaire MED-7 Date MED - 7 assessed: 10/07/22 Source: Developed by Drs. Cristóbal Freeman, Evonne Quintana, Elie Lyn and colleagues, with an educational bairon from [employer]. Review of Systems Const All systems reviewed & are unremarkable except as noted in HPI and below Reports no additional complaints Eyes Reports no additional complaints ENT Reports no additional complaints Card Reports no additional complaints Resp Reports no additional complaints GI Reports no additional complaints Reports no additional complaints Physical exam (Primary Care) Vital Signs: Last Vital Signs Pulse 73 01/29/23 14:13 BP 128/74 01/29/23 14:13 Pulse Ox 98 01/29/23 14:13 Oxygen Delivery Method Room Air 01/29/23 14:13 BMI result Body Mass Index 27.8 Tobacco/Smoking Status: Tobacco use Status Tobacco use date assessed 10/07/22 01/29/23 14:08 Patient Tobacco Use Status Current someday Tobacco 01/29/23 14:18 Tobacco use type Cigar 01/29/23 14:18 e-Cigarette/Vaping Use Never Used 01/29/23 14:08 Thrive Assessment: Date of Thrive Assessment Date Thrive assessed 10/07/22 01/29/23 14:08 Const General: no acute distress HENMT Head: Yes normal to inspection Ears: hearing grossly normal bilaterally Face and sinus: Yes normal facial exam Mouth: Normal oral and palatal mucosa present Throat: Yes posterior oropharynx normal Eyes General: appearance normal, both eyes and all related structures Neck Neck: Yes no lymphadenopathy and Yes supple Resp Effort & Inspection: normal respiratory effort Auscultation: clear to auscultation bilaterally Cardio Rhythm: regular rhythm Heart sounds: S1 normal heart sound present and S2 normal heart sound present GI Inspection: Yes normal to inspection Palpation (GI): Soft to palpation Percussion: Yes normal to percussion Auscultation: normal bowel sounds Assessment and Plan Assessment & Plan (1) Cluster headache: Comment: f/u Neurology, takes verapamil p.r.n. Code(s): G44.009 - Cluster headache syndrome, unspecified, not intractable (2) Hyperlipidemia: Code(s): E78.5 - Hyperlipidemia, unspecified Plan: low cholesterol diet and increase exercise (3) Annual physical exam: Code(s): Z00.00 - Encounter for general adult medical examination without abnormal findings Plan: well balanced diet, regular exercise discussed with the patient. He will schedule an appointment for colonoscopy. Patient will follow-up in 4 months with a fasting labs before (4) FHx: breast cancer: Comment: mother at 37 Code(s): Z80.3 - Family history of malignant neoplasm of breast Plan: Referred to genetic counseling Orders: Orders Lipid Panel 4 Months E78.5 - Hyperlipidemia, unspecified Referrals Genetics Referral Z80.3 - Family history of malignant neoplasm of breast Coding Level of Care Code Est Pt Prev Care 40-64y(17356) Diagnoses Cluster headache G44.009 Hyperlipidemia E78.5 Annual physical exam Z00.00 FHx: breast cancer Z80.3
[2023-01-29 14:13] VITALS: BP 128/74; PULSE 73; O2SAT 98; BMI 27.8
== END 2023-01-29 15:00 | disposition home or self-care (01) ==
PROVIDERS: Visit Provider Internal Medicine
DX: G44.009 Cluster headache syndrome, unspecified, not intractable (principal); E78.5 Hyperlipidemia, unspecified; Z00.00 Encounter for general adult medical examination without abnormal findings; Z80.3 Family history of malignant neoplasm of breast
CPT/HCPCS: 99396

== ENCOUNTER 2023-06-03 06:07 | Outpatient (REF) | payer OTHER, SELFPAY ==
[2023-06-03 12:08] LABS: Cholesterol 214 mg/dL (<200); HDL Cholesterol 48 mg/dL (>40); LDL Cholesterol Calculated 134 mg/dL (<100); Triglycerides 160 mg/dL (<150)
== END 2023-06-03 06:08 | disposition home or self-care (01) ==
LOC: HO.HMGCLDS 06:07
PROVIDERS: PCP Internal Medicine; Visit Provider Internal Medicine
DX: E78.5 Hyperlipidemia, unspecified (principal)
CPT/HCPCS: 36415; 80061

== ENCOUNTER 2023-06-06 13:45 | Outpatient (AMB) | payer OTHER, SELFPAY ==
--- NOTE | 2023-06-06 14:12 | MHC.PC.OV ---
Vital Signs 06/06/23 14:25 Height 5 ft 10 in Weight 198 lb BMI 28.4 BP 132/72 Blood Pressure Location Rt brachial Position Sitting Pulse 73 Pulse Source Pulse Oximeter Pulse Oximetry (%) 98 Oxygen Delivery Method Room Air Intake Visit Reasons: EP, 4 Month FU Cholesterol Intake Note: Pt is here today for his 4 mo. f/u chol. Allergies No Known Allergies [No Known Allergies*] Allergy (Verified 06/06/23 14:24) Medication List - Last Reconciled 06/06/23 by Rowan Colby MD No Known Home Meds Tobacco use date assessed: 06/06/23 Dental Screening Dental Screen Date: 06/06/23 Did you have a dental visit in the last 12 months?: Yes Did you have a dental problem in the last 6 months where you did not have access to dental care?: No Was dental information given to patient?: Patient has dentist HPI EP, 4 Month FU Cholesterol HPI Details Pt presents for diet controlled hyperlipid. Pt c/o chronic LBP and chronic L knee pain. Patient had a left knee meniscus surgery in December and completed a physical therapy. [facility] Medical History Annual physical exam Arthralgia Cervical stenosis of spine Cluster headache Hyperlipidemia Leg weakness, bilateral Myalgia Surgical History History of bilateral carpal tunnel release Hx of neck surgery Family History Mother No problems noted. Father No problems noted. Social History Housing: House Are you a primary pet caretaker to a significant other at home: No Do you presently have visiting nurse or other home services: No Alcohol intake: current Patient Tobacco Use Status: Current someday Tobacco user Tobacco use type: Cigar e-Cigarette/Vaping Use: Never Used Second Hand Smoke Exposure: No Current occupational status: employed Current occupation: [employer]/ right hand dominant Cognitive needs: No Hearing needs: No Vision needs: No Questionnaire Thrive Questionnaire Date Thrive assessed: 10/07/22 MED-7 AMB Questionnaire MED-7 Date MED - 7 assessed: 10/07/22 Source: Developed by Drs. Cristóbal Freeman, Evonne Quintana, Elie Lyn and colleagues, with an educational bairon from [employer]. Review of Systems Const All systems reviewed & are unremarkable except as noted in HPI and below Reports no additional complaints Eyes Reports no additional complaints ENT Reports no additional complaints Card Reports no additional complaints Resp Reports no additional complaints GI Reports no additional complaints Reports no additional complaints Physical exam (Primary Care) Vital Signs: Last Vital Signs Pulse 73 06/06/23 14:25 BP 132/72 06/06/23 14:25 Pulse Ox 98 06/06/23 14:25 Oxygen Delivery Method Room Air 06/06/23 14:25 BMI result Body Mass Index 28.4 Tobacco/Smoking Status: Tobacco use Status Tobacco use date assessed 06/06/23 06/06/23 14:28 Patient Tobacco Use Status Current someday Tobacco 06/06/23 14:12 Tobacco use type Cigar 06/06/23 14:12 e-Cigarette/Vaping Use Never Used 06/06/23 14:12 Thrive Assessment: Date of Thrive Assessment Date Thrive assessed 10/07/22 06/06/23 14:12 Const General: no acute distress HENMT Face and sinus: Yes normal facial exam Throat: Yes posterior oropharynx normal Neck Neck: Yes no lymphadenopathy and Yes supple Resp Effort & Inspection: normal respiratory effort Auscultation: clear to auscultation bilaterally Cardio Rhythm: regular rhythm Heart sounds: S1 normal heart sound present and S2 normal heart sound present GI Inspection: Yes normal to inspection Extrem Other: There is DROM of L knee, no soft tissue swelling Assessment and Plan Assessment & Plan (1) Annual physical exam: Code(s): Z00.00 - Encounter for general adult medical examination without abnormal findings (2) Hyperlipidemia: Code(s): E78.5 - Hyperlipidemia, unspecified Plan: Continue low-cholesterol diet and regular physical activity, return in January for physical with fasting labs before (3) Hyperglycemia: Code(s): R73.9 - Hyperglycemia, unspecified Plan: Continue ADA diet weight loss (4) Tear of meniscus of left knee: Code(s): S83.207A - Unspecified tear of unspecified meniscus, current injury, left knee, initial encounter Orders: Orders Comprehensive [place]. Panel Fast 8 Months E78.5 - Hyperlipidemia, unspecified, R73.9 - Hyperglycemia, unspecified, Z00.00 - Encounter for general adult medical examination without abnormal findings Lipid Panel 8 Months E78.5 - Hyperlipidemia, unspecified, R73.9 - Hyperglycemia, unspecified, Z00.00 - Encounter for general adult medical examination without abnormal findings Complete Blood Count Auto Diff 8 Months E78.5 - Hyperlipidemia, unspecified, R73.9 - Hyperglycemia, unspecified, Z00.00 - Encounter for general adult medical examination without abnormal findings TSH reflex Free T4 8 Months E78.5 - Hyperlipidemia, unspecified, R73.9 - Hyperglycemia, unspecified, Z00.00 - Encounter for general adult medical examination without abnormal findings Hemoglobin A1c 8 Months R73.9 - Hyperglycemia, unspecified Coding Level of Care Code Est Pt Level 4 (77983) Diagnoses Annual physical exam Z00.00 Hyperlipidemia E78.5 Hyperglycemia R73.9 Tear of meniscus of left knee S83.207A
[2023-06-06 14:25] VITALS: BP 132/72; PULSE 73; O2SAT 98; BMI 28.4
== END 2023-06-06 15:04 | disposition home or self-care (01) ==
PROVIDERS: PCP Internal Medicine; Visit Provider Internal Medicine
DX: Z00.00 Encounter for general adult medical examination without abnormal findings (principal); E78.5 Hyperlipidemia, unspecified; R73.9 Hyperglycemia, unspecified; S83.207A Unspecified tear of unspecified meniscus, current injury, left knee, initial encounter
CPT/HCPCS: 99214

== ENCOUNTER 2024-01-31 09:03 | Outpatient (REF) | payer OTHER, SELFPAY ==
[2024-01-31 11:10] LABS: MANUAL DIFF FLAG NO
[2024-01-31 11:14] LABS: Eosinophils Absolute Auto 0.2 X10*3/uL (0.0-0.4); Eosinophils Percent Auto 4.8 % (0-4); Hematocrit 45.6 % (42.0-52.0); Hemoglobin 15.5 g/dl (14.0-18.0); Imm Gran Abs Auto 0.01 X10*3/uL (0.00-0.03); Imm Gran Pct Auto 0.3 % (0.0-0.4); Lymphocytes Absolute Auto 1.7 X10*3/uL (1.2-4.9); Lymphocytes Percent Auto 43.9 % (20-40); Mean Corpuscular Hemoglobin 31.6 pg (27.0-33.0); Mean Corpuscular Volume 93.1 fL (80.0-98.0); Mean Platelet Volume 9.8 fL (9.4-12.4); Monocytes Absolute Auto 0.4 X10*3/uL (0.1-1.2); Monocytes Percent Auto 9.6 % (2-11); Neutrophils Absolute Auto 1.6 x10*3/uL (2.0-8.3); Neutrophils Percent Auto 40.4 % (45-73); Platelet Count 254 X10*3/uL (160-400); Red Cell Distribution Width 12.4 % (11.0-16.0)
[2024-01-31 11:31] LABS: Alanine Aminotransferase 22 U/L (0-40); Albumin Level 4.3 g/dL (3.5-5.0); Alkaline Phosphatase 48 U/L (39-117); Anion Gap 14 (12-20); Aspartate Amino Transferase 15 U/L (5-37); Bilirubin Total 0.6 mg/dL (0.0-1.0); Blood Urea Nitrogen 11 mg/dL (9-16); Calcium 9.3 mg/dL (8.4-10.2); Carbon Dioxide 25 mmol/L (22-29); Chloride 105 mmol/L (96-108); Cholesterol 229 mg/dL (<200); Estimated Glomerular Filt Rate > 60; Glucose Fasting 92 mg/dL (60-99); HDL Cholesterol 52 mg/dL (>40); LDL Cholesterol Calculated 155 mg/dL (<100); Potassium 3.9 mmol/L (3.3-5.1); Sodium 140 mmol/L (135-145); Total Protein 6.9 g/dL (6.5-8.0); Triglycerides 113 mg/dL (<150)
[2024-01-31 11:47] LABS: Estimated Average Glucose 105 mg/dL; Hemoglobin A1c % 5.3 % (<6.0); TSH reflex Free T4 0.99 uIU/mL (0.32-4.0)
== END 2024-01-31 09:04 | disposition home or self-care (01) ==
LOC: HO.HMGCLDS 09:03
PROVIDERS: PCP Internal Medicine; Visit Provider Internal Medicine
DX: Z00.00 Encounter for general adult medical examination without abnormal findings (principal); E78.5 Hyperlipidemia, unspecified; R73.9 Hyperglycemia, unspecified
CPT/HCPCS: 36415; 80053; 80061; 83036; 84443; 85025

== ENCOUNTER 2024-02-04 13:06 | Outpatient (AMB) | payer OTHER, SELFPAY ==
--- NOTE | 2024-02-04 13:11 | A.OFFPC_ITS ---
Vital Signs 02/04/24 13:12 Height 5 ft 10 in Weight 194 lb BMI 27.8 BP 136/84 Blood Pressure Location Lt brachial Position Sitting Pulse 89 Pulse Source Pulse Oximeter Pulse Oximetry (%) 98 Oxygen Delivery Method Room Air Intake Visit Reasons: Annual PE Intake Note: Pt is here today for PE. Allergies No Known Allergies [No Known Allergies*] Allergy (Verified 02/04/24 13:13) Medication List - Last Reconciled 02/04/24 by Rowan Colby MD No Known Home Meds Tobacco use date assessed: 02/04/24 Dental Screening Dental Screen Date: 02/04/24 Did you have a dental visit in the last 12 months?: Yes Did you have a dental problem in the last 6 months where you did not have access to dental care?: No Was dental information given to patient?: Patient has dentist HPI Annual PE HPI Details Pt presents for PE. He complains of right inguinal area of bulging and some discomfort when lifting heavy objects. [facility] Medical History Cluster headache Cervical stenosis of spine Hyperlipidemia Leg weakness, bilateral Arthralgia Myalgia Annual physical exam Surgical History History of bilateral carpal tunnel release Hx of neck surgery Family History Mother No problems noted. Father No problems noted. Social History Housing: House Are you a primary wild animal caretaker to a significant other at home: No Do you presently have visiting nurse or other home services: No Alcohol intake: current Patient Tobacco Use Status: Current someday Tobacco user Tobacco use type: Cigar e-Cigarette/Vaping Use: Never Used Second Hand Smoke Exposure: No service: No Current occupational status: employed Current occupation: [employer] [place]/ right hand dominant Cognitive needs: No Hearing needs: No Vision needs: Yes Questionnaire PHQ-9 Over the last 2 weeks, how often have you been bothered by any of the following problems? 1. Little interest or pleasure in doing things: not at all 2. Feeling down, depressed, or hopeless: not at all 3. Trouble falling or staying asleep, or sleeping too much: not at all 4. Feeling tired or having little energy: not at all 5. Poor appetite or overeating: not at all 6. Feeling bad about yourself - or that you are a failure or have let yourself or your family down: not at all 7. Trouble concentrating on things, such as reading the newspaper or watching television: not at all 8. Moving or speaking so slowly that other people could have noticed. Or the opposite - being so fidgety or restless that you have been moving around a lot more than usual: not at all 9. Thoughts that you would be better off or of hurting yourself in some way: not at all Total score: 0 Depression Screening Interpretation: Negative Depression Screening Done: Yes Source: Developed by Drs. Cristóbal Freeman, Evonne Quintana, Elie Lyn and colleagues, with an educational bairon from [employer]. Thrive Questionnaire Date Thrive assessed: 02/04/24 I am a: Patient What is your living situation today?: I have a steady place to live Within the past 12 months, did the food you bought not last and you didn't have the money to get more?: I choose not to answer this question Within the past 12 months, did you worry whether your food would run out before you got money to buy more?: I choose not to answer this question Do you have trouble paying for medicines?: I choose not to answer this question Do you have trouble getting transportation to medical appointments?: I choose not to answer this question Do you have trouble paying your heating and electricity bill?: I choose not to answer this question Do you have trouble taking care of your child, family member or friend?: I choose not to answer this question Do you have trouble with day-to-day activities such as bathing, preparing meals, shopping, managing finances, etc.?: I choose not to answer this question Are you currently unemployed and looking for a job?: I choose not to answer this question Are you interested in more education?: I choose not to answer this question Please select the resources that you would like help with: Housing/Residential Currently or been in a relationship where the following occur: I choose not to answer THRIVE Score: 0 AUDIT C Alcohol Use Questionnaire (AUDIT-C) 1. How often do you have a drink containing alcohol?: 4 or more times a week 2. How many drinks containing alcohol do you have on a typical day when you are drinking?: 3 or 4 3. How often do you have six or more drinks on one occasion?: Monthly Total Score: 7 MED-7 AMB Questionnaire MED-7 Date MED - 7 assessed: 02/04/24 Feeling nervous, anxious, or on edge: 0 = Not at all Not being able to stop or control worryin = Not at all Worrying too much about different things: 0 = Not at all Trouble relaxin = Not at all Being so restless that it is hard to sit still: 0 = Not at all Becoming easily annoyed or irritable: 0 = Not at all Feeling afraid as if something awful might happen: 0 = Not at all Total MED-7 score (0-4 normal; 5-9 mild; 10-14 moderate; 15-21 severe): 0 Source: Developed by Drs. Cristóbal Freeman, Evonne Quintana, Elie Lyn and colleagues, with an educational bairon from [employer]. Review of Systems Const All systems reviewed & are unremarkable except as noted in HPI and below ENT Reports no additional complaints Card Reports no additional complaints Resp Reports no additional complaints GI Reports no additional complaints Reports no additional complaints Musc Reports no additional complaints Physical exam (Primary Care) Vital Signs: Last Vital Signs Pulse 89 02/04/24 13:12 BP 136/84 02/04/24 13:12 Pulse Ox 98 02/04/24 13:12 Oxygen Delivery Method Room Air 02/04/24 13:12 BMI result Body Mass Index 27.8 Tobacco/Smoking Status: Tobacco use Status Tobacco use date assessed 02/04/24 02/04/24 13:17 Patient Tobacco Use Status Current someday Tobacco 02/04/24 13:17 Tobacco use type Cigar 02/04/24 13:17 e-Cigarette/Vaping Use Never Used 02/04/24 13:17 PHQ-9: PHQ-9 Score PHQ-9: Total score 0 02/04/24 13:18 Depression Screening Interpretation: Negative Thrive Assessment: Date of Thrive Assessment Date Thrive assessed 02/04/24 02/04/24 13:17 Currently or been in a relationship where the following occur: I choose not to answer Const General: no acute distress HENMT Face and sinus: Yes normal facial exam Neck Neck: Yes no lymphadenopathy and Yes supple Resp Effort & Inspection: normal respiratory effort Auscultation: clear to auscultation bilaterally Cardio Rhythm: regular rhythm Heart sounds: S1 normal heart sound present and S2 normal heart sound present GI Other: Left inguinal area bulging and slight tenderness Inspection: Yes normal to inspection Palpation (GI): Soft to palpation Percussion: Yes normal to percussion Auscultation: normal bowel sounds Assessment and Plan Assessment & Plan (1) Inguinal hernia: Code(s): K40.90 - Unilateral inguinal hernia, without obstruction or gangrene, not specified as recurrent Plan: Referred to surgeon (2) Annual physical exam: Code(s): Z00.00 - Encounter for general adult medical examination without abnormal findings Plan: Well-balanced diet regular physical activity discussed with the patient he will have a colonoscopy (3) Hyperlipidemia: Code(s): E78.5 - Hyperlipidemia, unspecified Plan: Low-cholesterol diet regular physical activity discussed with the patient check lipid profile in 6 months and 1 year patient declined taking medication (4) Cluster headache: Comment: f/u Neurology, Dr. Meza , takes verapamil p.r.n. Code(s): G44.009 - Cluster headache syndrome, unspecified, not intractable Plan: Follow-up with neurology Orders: Orders Lipid Panel 7 Months E78.5 - Hyperlipidemia, unspecified Comprehensive [place]. Panel Fast 1 Year E78.5 - Hyperlipidemia, unspecified, Z00.00 - Encounter for general adult medical examination without abnormal findings Complete Blood Count Auto Diff 1 Year E78.5 - Hyperlipidemia, unspecified, Z00.00 - Encounter for general adult medical examination without abnormal findings Lipid Panel 1 Year E78.5 - Hyperlipidemia, unspecified, Z00.00 - Encounter for general adult medical examination without abnormal findings UA and rflx microscopic 1 Year E78.5 - Hyperlipidemia, unspecified, Z00.00 - Encounter for general adult medical examination without abnormal findings PSA,Total (Free>4and<10) 1 Year E78.5 - Hyperlipidemia, unspecified, Z00.00 - Encounter for general adult medical examination without abnormal findings Referrals General Surgery Referral K40.90 - Unilateral inguinal hernia, without obstruction or gangrene, not specified as recurrent Coding Level of Care Code Est Pt Prev Care 40-64y(87974) Diagnoses Inguinal hernia K40.90 Annual physical exam Z00.00 Hyperlipidemia E78.5 Cluster headache G44.009
[2024-02-04 13:12] VITALS: BP 136/84; PULSE 89; O2SAT 98; BMI 27.8
== END 2024-02-04 13:54 | disposition home or self-care (01) ==
PROVIDERS: PCP Internal Medicine; Visit Provider Internal Medicine
DX: K40.90 Unilateral inguinal hernia, without obstruction or gangrene, not specified as recurrent (principal); Z00.00 Encounter for general adult medical examination without abnormal findings; E78.5 Hyperlipidemia, unspecified; G44.009 Cluster headache syndrome, unspecified, not intractable
CPT/HCPCS: 99396

== ENCOUNTER 2024-02-26 08:53 | Outpatient (AMB) | payer OTHER, SELFPAY ==
[2024-02-26 08:54] VITALS: BMI 28.1
--- NOTE | 2024-02-26 08:54 | MHC.OFFVIS ---
Vital Signs 02/26/24 08:54 Height 5 ft 10 in Weight 196 lb BMI 28.1 Intake Visit Reasons: Unilateral inguinal hernia Intake Note: This patient presents for a unilateral inguinal hernia assessment. Pt c/o; left groin, reports no bulge, reports occasional discomfort. 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 He has noticed this reducible mass on the left groin for about 3 months. He says that he had some tenderness and pain on the area periodically. 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 He says that the hernia reduces on its own. He otherwise denies GI complaints His medical history is significant for cluster headaches. [facility] Medical History Left inguinal hernia Cluster headache Cervical stenosis of spine Hyperlipidemia Leg weakness, bilateral Arthralgia Myalgia Annual physical exam Surgical History History of bilateral carpal tunnel release Hx of neck surgery Family History Mother No problems noted. Father No problems noted. Social History Housing: House Are you a primary wound care center consultant to a significant other at home: No Do you presently have visiting nurse or other home services: No Alcohol intake: current Patient Tobacco Use Status: Current someday Tobacco user Tobacco use type: Cigar e-Cigarette/Vaping Use: Never Used Second Hand Smoke Exposure: No service: No Current occupational status: employed Current occupation: [employer]/ right hand dominant Cognitive needs: No Hearing needs: No Vision needs: Yes Review of Systems Const Denies chills and Denies fever(s) Card Denies chest pain, Denies dyspnea and Denies dyspnea on exertion Resp Denies cough, Denies dyspnea and Denies dyspnea on exertion GI Denies hematochezia and Denies change in bowel habits Denies hematuria and Denies difficulty urinating Musc Denies back pain and Denies limited range of motion Neuro Details: Has history of cluster headaches Denies focal weakness and Denies convulsions Psych Denies depression and Denies mood swings Physical Exam Const General: comfortable and no acute distress Orientation/consciousness: patient oriented x3 Neck Neck: Yes no lymphadenopathy Resp Auscultation: clear to auscultation bilaterally Cardio Rhythm: regular rhythm GI Other: Left inguinal hernia, obvious with Valsalva, easily reducible Palpation (GI): Soft to palpation, nontender and no guarding Neuro General: patient oriented x3 Assessment & Plan Assessment & Plan (1) Left inguinal hernia: Code(s): K40.90 - Unilateral inguinal hernia, without obstruction or gangrene, not specified as recurrent Category: Medical Plan He has a reducible left inguinal hernia. I explained to him the technique of repair of the left inguinal hernia with mesh. I reviewed the risks including but not limited to bleeding, infections, injury to other organs including bowel, vas deferens, recurrence, postop pain. I explained the benefits and alternatives . I also reviewed with him what to expect postoperatively. He says he understands and wants to schedule for the left inguinal hernia repair. Coding Level of Care Code New Pt Level 3 (99451) Diagnoses Left inguinal hernia K40.90
== END 2024-02-26 09:19 | disposition home or self-care (01) ==
PROVIDERS: PCP Internal Medicine; Referring Provider Internal Medicine; Visit Provider Surgery
DX: K40.90 Unilateral inguinal hernia, without obstruction or gangrene, not specified as recurrent (principal)
CPT/HCPCS: 99204

== ENCOUNTER → 2024-02-26 08:53 | Outpatient (BNVA) | payer OTHER, SELFPAY | PROVIDERS: PCP Internal Medicine; Referring Provider Internal Medicine; Visit Provider Surgery ==

== ENCOUNTER 2024-04-20 07:53 | Day surgery (SDC) | payer OTHER, SELFPAY ==
[2024-04-16 14:53] VITALS: BMI 30.7
--- NOTE | 2024-04-19 08:35 | P.CONAN_ITS ---
Documented by User: Thuy Lynch NP 04/19/24 08:36 HPI - Anesthesia Eval Consult details Narrative: 63yo M for Left Hernia Inguinal Reducible PMFSH Active Problems Active Problems: All Active Problems Left inguinal hernia (Acute) Inguinal hernia (Acute) FHx: breast cancer (Acute) Status post arthroscopy of left knee (Acute) Knee pain (Acute) Osteoarthritis of left knee (Acute) Hx of colonoscopy (Acute) Hyperglycemia (Acute) Tear of meniscus of left knee (Acute) Internal derangement of left knee (Acute) Abnormal EKG (Acute) Cluster headache (Acute) Cervical stenosis of spine (Acute) Hyperlipidemia (Acute) Leg weakness, bilateral (Acute) Arthralgia (Acute) Myalgia (Acute) Annual physical exam (Acute) Past Medical History Medical History Left inguinal hernia Cluster headache Cervical stenosis of spine Hyperlipidemia Leg weakness, bilateral Arthralgia Myalgia Annual physical exam Family History Family History Mother No problems noted. Father No problems noted. Family history of problems with anesthesia: No Surgical History Surgical History History of bilateral carpal tunnel release Hx of neck surgery History of Problems with Anesthesia: No Social History Social History Housing: House Are you a primary administrator health care facility to a significant other at home: No Do you presently have visiting nurse or other home services: No Alcohol intake: current Alcohol intake frequency: 3 or more drinks per day Patient Tobacco Use Status: Current someday Tobacco user Tobacco use type: Cigar Smoked in Last 30 Days: Yes e-Cigarette/Vaping Use: Never Used Second Hand Smoke Exposure: No Use of substances other than those prescribed or required for medical reasons: No Have you been hit, kicked, punched, or otherwise hurt by someone within the past year? If so, by whom?: No Are you DNR?: No Advance Directives: No Advance Directives Information Provided: Yes Recently lost weight without trying: No How much weight loss: Not applicable Eating poorly because of decreased appetite: No Nutrition screen score: 0 Nutrition Risks: No Nutritional Risk Poor oral hygiene: No service: No Current occupational status: employed Current occupation: [employer]/ right hand dominant Cognitive needs: No Hearing needs: No Vision needs: Yes Meds Allergies Allergy/AdvReac Type Severity Reaction Status Date / Time No Known Allergies Allergy Verified 02/26/24 09:00 [No Known Allergies*] Exam Height,Weight and Vital Signs: Height 5 ft 7 in Weight 88.904 kg Pertinent Lab Results Pertinent Lab Results: Laboratory Tests 01/31/24 09:26 WBC 4.0 L Hgb 15.5 Hct 45.6 Plt Count 254 Sodium 140 Potassium 3.9 Chloride 105 Carbon Dioxide 25 BUN 11 Creatinine 0.81 Assessment and Plan Assessment Anesthesia Assessment: Chart Reviewed Final Anesthetic Review Family History of Problems with Anesthesia: No History of Problems with Anesthesia: No Documented by User: Ashley Chavez MD 04/20/24 08:39 [facility] Past Medical History Medical History Left inguinal hernia Cluster headache Cervical stenosis of spine Hyperlipidemia Leg weakness, bilateral Arthralgia Myalgia Annual physical exam Family History Family History Mother No problems noted. Father No problems noted. Surgical History Surgical History History of bilateral carpal tunnel release Hx of neck surgery Social History Social History Housing: House Are you a primary administrator health care facility to a significant other at home: No Do you presently have visiting nurse or other home services: No Alcohol intake: current Alcohol intake frequency: 3 or more drinks per day Patient Tobacco Use Status: Current someday Tobacco user Tobacco use type: Cigar Smoked in Last 30 Days: Yes e-Cigarette/Vaping Use: Never Used Second Hand Smoke Exposure: No Use of substances other than those prescribed or required for medical reasons: No Have you been hit, kicked, punched, or otherwise hurt by someone within the past year? If so, by whom?: No Are you DNR?: No Advance Directives: No Advance Directives Information Provided: Yes Recently lost weight without trying: No How much weight loss: Not applicable Eating poorly because of decreased appetite: No Nutrition screen score: 0 Nutrition Risks: No Nutritional Risk Poor oral hygiene: No service: No Current occupational status: employed Current occupation: [employer]/ right hand dominant Cognitive needs: No Hearing needs: No Vision needs: Yes Meds Allergies Allergy/AdvReac Type Severity Reaction Status Date / Time No Known Allergies Allergy Verified 02/26/24 09:00 [No Known Allergies*] Exam Airway Mallampati Class: II TM Dist: >3cm Neck ROM: Full Assessment and Plan Assessment Anesthesia Assessment: Anesthesia Plan Discussed Final Anesthetic Review NPO: Yes ASA Class: II Final Preanesthetic Review: No Changes in Pt Med Stat, Meds/Allgs Chart Reviewed, Consent Obtained/Reviewed and Anes Risks/Benef Reviewed Patient Risk: Intermediate Procedure Risk: Low Anesthetic Plan Anesthetic Plan: GA Disposition: Standard PACU
[2024-04-20] VITALS (7 sets, daily range): BP systolic 128–172; BP diastolic 71–97; PULSE 51–63; RESP 15–16; TEMP 36.1–36.3; O2SAT 97–100; BMI 29.4
--- NOTE | 2024-04-20 08:19 | MHC.SHP ---
Pre-Procedural Eval Section A - 24 Hr Update-Section A only Date of Service: 04/20/24 Section B - Complete if H&P > 30 days Chief Complaint: Unilateral inguinal hernia, without obstruction Details of Present Illness: Reducible left inguinal hernia Relevant Social History: None Present Medications: see Short Stay Collaborative assessment Medical History: Significant History (Hyperlipidemia, cluster headaches, myalgia) Allergies: Allergies Allergy/AdvReac Type Severity Reaction Status Date / Time No Known Allergies Allergy Verified 02/26/24 09:00 [No Known Allergies*] Review of Systems Sugical H&P ROS: Negative: Constitution, Cardiovascular, Respiratory and Gastrointestinal Exam Surgical H&P Exam: Normal: Heart and Normal: Lungs and Significant Findings: Abdomen (Left inguinal hernia, reducible) Plan Diagnosis/Plan: Unchanged I have reviewed the history and physical and performed a pertinent physical examination on my patient. No changes have occurred unless specified. Time Spent With Patient Time: Total time managing care of this patient today ____ minutes.
[2024-04-20] MEDS: Lactated Ringers 1,000 ML 100 ML IVCONT (08:42)
--- NOTE | 2024-04-20 09:40 | P.OP_ITS ---
Operative Note Operative Note Date of Service: 04/20/24 Narrative: Preop diagnosis: Left inguinal hernia, reducible Postop diagnosis: Left inguinal hernia, indirect, reducible Procedure: Repair of a left inguinal hernia with mesh Surgeon: Praful Alcantara MD phlebotomy lab assistant: JUJU Putnam The patient is a 63-year-old male with a reducible mass in the left groin consistent with a left inguinal hernia. He understood the technique of repair with mesh. He was aware of the risks, benefits, and alternatives. He was brought to the operating room. He was placed supine under general anesthesia via laryngeal mask airway. The left groin was prepped and draped in the usual sterile fashion. A surgical time-out was done. The patient received cefazolin 2 g IV preoperatively I infiltrated the planned line of incision with lidocaine 1%. I made a short incision on the skin along an imaginary line from the anterior superior iliac spine to the pubic ramus using blade 15. This was carried down through the full- thickness of the skin and subcutaneous fat down to the fascia. I bluntly dissected the external oblique aponeurosis define this and therefore identify the external ring. I made a short incision on the external oblique aponeurosis using blade 15. This was extended inferomedially to connect with the external ring. The inguinal canal was therefore entered. I applied hemostasis on the divided edges of the aponeurosis. I did blunt dissection of the spermatic cord and its contents using an index finger until was able to pass a [place] drain around this. This [place] drain was used for retraction There was note of a large hernia on the anteromedial aspect of the cord. I bluntly dissected this to define the rest of the cord structures. By doing so, as able to identify the vas deferens and the accompanying vessels. This were protected during the dissection. I continued to separate the hernia contents from the rest of the cord structures until was able to reduce this through the internal ring. The cord contents consisted of omental fat. I reinforced the internal ring with a Prolene plug. The plug was secured to the shelving edge of the inguinal meant laterally and the internal oblique superiorly medially. I reinforced the entire floor of the canal with a keyhole mesh. The tails of the mesh were passed around the cord at the level of the internal ring and were secured together with Prolene 2-0 sutures. I secured the mesh to the pubic ramus inferomedially, the shelving edge of the inguinal ligament laterally, and the internal oblique superiorly and medially I released the Iveth drain. I irrigated. Once hemostasis was confirmed, I reapposed the divided edges of the external oblique aponeurosis with a Polysorb 2-0 stitch to re-create the external ring The subcutaneous layer was reapposed with Polysorb 3-0 interrupted sutures. Skin closure was achieved with Polysorb 4-0 subcuticular running stitch The incision was infiltrated with Marcaine 0.5% for postop analgesia. Dressings were applied. The procedure was completed The patient tolerated the procedure well. There were no immediate complications. Initial and final counts of sponges and instruments were correct. Estimated blood loss was about 5 cc The patient was extubated without difficulty and transferred to the recovery room with stable vital signs.
== END 2024-04-20 11:20 | disposition home or self-care (01) ==
PROVIDERS: PCP Internal Medicine; Visit Provider Surgery
PROC: (CPT 49505; principal; 2024-04-20 09:20)
DX: K40.90 Unilateral inguinal hernia, without obstruction or gangrene, not specified as recurrent (principal); G44.009 Cluster headache syndrome, unspecified, not intractable; E78.5 Hyperlipidemia, unspecified; M79.10 Myalgia, unspecified site; Z98.890 Other specified postprocedural states; F17.290 Nicotine dependence, other tobacco product, uncomplicated
CPT/HCPCS: 49505; C1781; J0131; J0690; J1100; J1885; J2250; J2405; J2704; J2795; J3010

== ENCOUNTER → 2024-04-20 07:53 | Outpatient (BNV) | payer OTHER, SELFPAY | PROVIDERS: PCP Internal Medicine; Visit Provider Surgery | DX: K40.90 Unilateral inguinal hernia, without obstruction or gangrene, not specified as recurrent (principal) | CPT/HCPCS: 49505 ==

== ENCOUNTER 2024-05-05 10:07 | Outpatient (AMB) | payer OTHER, SELFPAY ==
[2024-05-05 10:15] VITALS: BMI 28.7
--- NOTE | 2024-05-05 10:15 | A.OFFVIS_ITS ---
Vital Signs 05/05/24 10:15 Height 5 ft 10 in Weight 200 lb BMI 28.7 Intake Visit Reasons: S/P LIH w/mesh Intake Note: This patient presents for post-op assessment status post repair of left inguinal hernia with mesh. Pt c/o; reports no complaints pertaining to surgery. Special Duty Nurse Required: No Accompanied by: Self / Same As Patient Allergies No Known Allergies [No Known Allergies*] Allergy (Verified 05/05/24 10:16) HPI HPI S/P LIH w/mesh: Details: He is here for follow-up after repair of a left inguinal hernia with mesh last 04/20/2024. He tolerated the procedure well. He currently denies significant complaints. [facility] Medical History Left inguinal hernia Cluster headache Cervical stenosis of spine Hyperlipidemia Leg weakness, bilateral Arthralgia Myalgia Annual physical exam Surgical History H/O knee surgery H/O hemorrhoidectomy History of bilateral carpal tunnel release Hx of neck surgery Family History Mother No problems noted. Father No problems noted. Social History Housing: House Are you a primary hearing healthcare practitioner to a significant other at home: No Do you presently have visiting nurse or other home services: No Alcohol intake: current Alcohol intake frequency: 3 or more drinks per day Patient Tobacco Use Status: Current someday Tobacco user Tobacco use type: Cigar e-Cigarette/Vaping Use: Never Used Second Hand Smoke Exposure: No service: No Current occupational status: employed Current occupation: [employer] [place]/ right hand dominant Cognitive needs: No Hearing needs: No Vision needs: Yes Physical Exam Vital Signs: BMI result Body Mass Index 28.7 Const General: comfortable and no acute distress GI Other: Left inguinal hernia repair incision is well healed, repair is intact, no infection Palpation (GI): Soft to palpation, not firm and nontender Assessment & Plan Assessment & Plan (1) Inguinal hernia: Code(s): K40.90 - Unilateral inguinal hernia, without obstruction or gangrene, not specified as recurrent Category: Medical Plan: Status post repair of a left inguinal hernia with mesh. He is doing very well. His incision is well healed. The repair site is intact. I advised him to avoid lifting anything more than 20 lb for at least 2 more weeks. He can follow up on a p.r.n. basis. Coding Level of Care Code Global (74562) Diagnoses Inguinal hernia K40.90
== END 2024-05-05 10:42 | disposition home or self-care (01) ==
PROVIDERS: PCP Internal Medicine; Visit Provider Surgery
DX: K40.90 Unilateral inguinal hernia, without obstruction or gangrene, not specified as recurrent (principal)
CPT/HCPCS: 99024

== ENCOUNTER → 2024-05-05 10:07 | Outpatient (BNVA) | payer OTHER, SELFPAY | PROVIDERS: PCP Internal Medicine; Visit Provider Surgery ==

== ENCOUNTER 2024-05-12 06:34 | Day surgery (SDC) | payer OTHER, SELFPAY ==
[2024-05-10 13:34] VITALS: BMI 29.4
--- NOTE | 2024-05-11 08:16 | HO.ANESPROP2 ---
Documented by User: Thuy Lynch NP 05/11/24 08:17 HPI - Anesthesia Eval Consult details Narrative: 63yo M for Colonoscopy PMFSH Active Problems Active Problems: All Active Problems Left inguinal hernia (Acute) Inguinal hernia (Acute) FHx: breast cancer (Acute) Status post arthroscopy of left knee (Acute) Abnormal EKG (Acute) Internal derangement of left knee (Acute) Tear of meniscus of left knee (Acute) Hyperglycemia (Acute) Hx of colonoscopy (Acute) Osteoarthritis of left knee (Acute) Knee pain (Acute) Cluster headache (Acute) Cervical stenosis of spine (Acute) Hyperlipidemia (Acute) Leg weakness, bilateral (Acute) Arthralgia (Acute) Myalgia (Acute) Annual physical exam (Acute) Past Medical History Medical History Cluster headache Cervical stenosis of spine Hyperlipidemia Leg weakness, bilateral Arthralgia Myalgia Family History Family History Mother No problems noted. Father No problems noted. Family history of problems with anesthesia: No Surgical History Surgical History Hx of left inguinal hernia repair H/O knee surgery H/O hemorrhoidectomy History of bilateral carpal tunnel release Hx of neck surgery History of Problems with Anesthesia: No Social History Social History Housing: House Are you a primary associate director career services to a significant other at home: No Do you presently have visiting nurse or other home services: No Alcohol intake: current Alcohol intake frequency: 3 or more drinks per day Patient Tobacco Use Status: Current someday Tobacco user Tobacco use type: Cigar e-Cigarette/Vaping Use: Never Used Second Hand Smoke Exposure: No Use of substances other than those prescribed or required for medical reasons: No Have you been hit, kicked, punched, or otherwise hurt by someone within the past year? If so, by whom?: No Advance Directives: No Advance Directives Information Provided: Yes Recently lost weight without trying: No Nutrition Risks: No Nutritional Risk service: No Current occupational status: employed Current occupation: [employer] [place]/ right hand dominant Cognitive needs: No Hearing needs: No Vision needs: Yes Meds Allergies Allergy/AdvReac Type Severity Reaction Status Date / Time No Known Allergies Allergy Verified 05/05/24 10:16 [No Known Allergies*] Exam Height,Weight and Vital Signs: Height 5 ft 11 in Weight 95.614 kg Assessment and Plan Assessment Anesthesia Assessment: Chart Reviewed Final Anesthetic Review Family History of Problems with Anesthesia: No History of Problems with Anesthesia: No Documented by User: Angely Toney MD 05/12/24 07:50 [facility] Past Medical History Medical History Cluster headache Cervical stenosis of spine Hyperlipidemia Leg weakness, bilateral Arthralgia Myalgia Family History Family History Mother No problems noted. Father No problems noted. Surgical History Surgical History Hx of left inguinal hernia repair H/O knee surgery H/O hemorrhoidectomy History of bilateral carpal tunnel release Hx of neck surgery Social History Social History Housing: House Are you a primary associate director career services to a significant other at home: No Do you presently have visiting nurse or other home services: No Alcohol intake: current Alcohol intake frequency: 3 or more drinks per day Patient Tobacco Use Status: Current someday Tobacco user Tobacco use type: Cigar e-Cigarette/Vaping Use: Never Used Second Hand Smoke Exposure: No Use of substances other than those prescribed or required for medical reasons: No Have you been hit, kicked, punched, or otherwise hurt by someone within the past year? If so, by whom?: No Advance Directives: No Advance Directives Information Provided: Yes Recently lost weight without trying: No Nutrition Risks: No Nutritional Risk service: No Current occupational status: employed Current occupation: [employer] [place]/ right hand dominant Cognitive needs: No Hearing needs: No Vision needs: Yes Meds Allergies Allergy/AdvReac Type Severity Reaction Status Date / Time No Known Allergies Allergy Verified 05/05/24 10:16 [No Known Allergies*] Exam Airway Mallampati Class: II TM Dist: >3cm Neck ROM: Full Heart: rrr Lungs: cta Assessment and Plan Assessment Anesthesia Assessment: Anesthesia Plan Discussed Final Anesthetic Review NPO: Yes ASA Class: II Final Preanesthetic Review: No Changes in Pt Med Stat, Meds/Allgs Chart Reviewed, Consent Obtained/Reviewed and Anes Risks/Benef Reviewed Patient Risk: Low Procedure Risk: Low Anesthetic Plan Anesthetic Plan: MAC: Disposition: Standard PACU
[2024-05-12 07:25] VITALS: BMI 26.2
[2024-05-12 07:29] VITALS: BP 146/88; PULSE 74; RESP 16; TEMP 36.3; O2SAT 97
[2024-05-12] MEDS: Lactated Ringers 1,000 ML 100 ML IVCONT (07:32)
[2024-05-12 08:32] VITALS: BP 95/60; PULSE 62; RESP 16; TEMP 36.1; O2SAT 97
--- NOTE | 2024-05-12 08:37 | P.BOP_ITS ---
Brief Operative Note Date of Service: 05/12/24 Pre-op diagnosis: Screening Post-op diagnosis: other (Polyps) Procedure: Colonoscopy to the cecum and TI with bx/removal of polyps, hot snare polypectomy x 2, and placement of 2 Resolution clips in area of Hepatic flexure polypectomy Surgeon: Cristóbal Cortes MD Anesthesia: MAC Was an Post Tensioning Ironworker used for this Procedure?: No Estimated blood loss (mL): 2.0 Pathology: other (A. Cecal polyp B. Polyp in area of Hepatic flexure C. Rectal polyps) Condition: stable Disposition: PACU
[2024-05-12 08:47] VITALS: BP 111/78; PULSE 61; RESP 18; TEMP 36.1; O2SAT 99
--- NOTE | 2024-05-12 10:04 | OP_ITS ---
DATE OF SERVICE: 05/12/2024 SURGEON: Cristóbal Cortes MD INDICATIONS: The patient presents for evaluation of personal history of colon polyps and colorectal cancer screening. Full consent has been obtained from him for this, including risks of bleeding and perforation. PREOPERATIVE DIAGNOSIS: POSTOPERATIVE DIAGNOSIS: PROCEDURE PERFORMED: Colonoscopy to the cecum and terminal ileum with biopsy and removal of polyps, hot snare polypectomies, and placement of 2 Resolution clips. ESTIMATED BLOOD LOSS: COMPLICATIONS: ANESTHESIA: Monitored anesthesia care. ASSISTANTS: SPECIMENS: PREOPERATIVE DIAGNOSES: Colorectal cancer screening and personal history of colon polyps. POSTOPERATIVE DIAGNOSES: Colorectal cancer screening, personal history of colon polyps, colon polyps, diverticulosis, and internal hemorrhoids. DESCRIPTION OF PROCEDURE: The patient was placed in the left lateral decubitus position. The digital rectal exam revealed no abnormalities. The Olympus video pediatric colonoscope was then entered into the rectum and advanced easily to the cecum. Once in the cecum, I did identify cecal pouch with appendiceal orifice and a normal-appearing ileocecal valve. The entire cecum was well visualized and appeared normal other than a 3 mm polyp, which was biopsied and completely removed with the cold biopsy forceps. The terminal ileum was cannulated and appeared normal. The scope was withdrawn back in the colon. The cecum otherwise appeared normal. The scope was slowly withdrawn assessing all mucosal surfaces carefully. Preparation was excellent. In the area of the distal ascending colon or hepatic flexure, was a flat, but lobulated soft polypoid area that may have represented either hyperplastic polyp or hyperplastic tissue, or possibly a serrated polyp. This was removed completely with hot snare polypectomy and recovered by suction. The polypectomy site appeared clean, without any sign of residual polyp nor bleeding. Two clips were applied with good deployment and good hemostasis. There was a mild amount of sigmoid diverticulosis. I did not visualize any sign of colitis nor angiodysplasias. In the rectum, were 3 polyps. Two were only 2 or 3 mm in diameter and both biopsied and completely removed with the biopsy forceps. An another polyp was approximately 5 or 6 mm in diameter and was removed by hot snare polypectomy and recovered by suction. The polypectomy site appeared clean, without any sign of residual polyp nor bleeding. The scope was retroflexed, visualizing small internal hemorrhoids. The scope was straightened and withdrawn from the patient. He tolerated the procedure well and was returned to the recovery area in stable condition. IMPRESSION: 1. Colon polyps. 2. Diverticulosis. 3. Internal hemorrhoids. PLAN: The results of the pathology will be checked. If the larger polyp is a serrated polyp, I would recommend a repeat colonoscopy within 3 years. If the larger polyp is only hyperplastic tissue and the smaller polyps were adenomas, I would recommend a followup colonoscopy in 5 years. If all of the polyps are just hyperplastic, I would then recommend a followup colonoscopy in 10 years given his negative exam in 2018 and the original colonoscopy 5 years prior to that as showing only a small tubular adenoma. He was advised not to use any aspirin and NSAIDs for 1 week. MD JOSIAH Lunsford/ANUJ / [phone]
== END 2024-05-12 09:14 | disposition home or self-care (01) ==
PROVIDERS: PCP Internal Medicine; Visit Provider Internal Medicine
PROC: 0DJD8ZZ Inspection of Lower Intestinal Tract, Via Natural or Artificial Opening Endoscopic (ICD-10-PCS; CPT 45378; principal; 2024-05-12 07:30)
DX: Z12.11 Encounter for screening for malignant neoplasm of colon (principal); Z86.0101 Personal history of adenomatous and serrated colon polyps; D12.0 Benign neoplasm of cecum; D12.3 Benign neoplasm of transverse colon; K62.1 Rectal polyp; K57.30 Diverticulosis of large intestine without perforation or abscess without bleeding; K64.8 Other hemorrhoids; Z98.890 Other specified postprocedural states
CPT/HCPCS: 45385; 45380; 88305; J2003; J2704

== ENCOUNTER 2024-09-08 09:02 | Outpatient (REF) | payer OTHER, SELFPAY ==
--- OUTSIDE RECORDS SUMMARY | 2024-09-08 09:13 | XMS_ITS ---
Author Organization [facility] Address [address] [place] [address] Care Team Providers Care Stranner Name Role Phone Rowan Colby MD Primary Care Provider Cristóbal Zuleta Unavailable [phone] REASON FOR VISIT colon screening PROBLEMS Problem Type ICD Code Onset Dates Problem Status W/U Status Risk SNOMED Code Notes Problem Diverticulosis of large intestine without perforation or abscess without bleeding (K57.30) Active confirmed Diverticul ar disease of colon (641241034) Encounters Encounter Location Date Provider Diagnosis [facility] [place] [address] [place], [place] [phone] 05/12/2024 Cristóbal Cortes Colon cancer scree keith Z12.11 ; Colon polyps K63.5 ; Rectal polyp K62.1 ; Diverticulosis of large intestine without perforation or abscess without bleeding K57.30 and Other hemorrhoids K64.8 ASSESSMENTS Encounter Date Diagnosis Assessment Notes Treatment Notes Treatment Clinical Notes 05/12/2024 Colon cancer screening (ICD-10 - Z12.11) 05/12/2024 Colon polyps (ICD-10 - K63.5) 05/12/2024 Rectal polyp (ICD-10 - K62.1) 05/12/2024 Diverticulosis of large intestine without perforation or abscess without bleeding (ICD-10 - K57.30) 05/12/2024 Other hemorrhoids (ICD-10 - K64.8) PLAN OF TREATMENT No Information
--- OUTSIDE RECORDS SUMMARY | 2024-09-08 09:13 | XMS_ITS ---
Author Organization [facility] Address [address] [place] [address] Care Team Providers Care Lead Slot Technician Name Role Phone Rowan Colby MD Primary Care Provider Cristóbal Zuleta Unavailable [phone] REASON FOR VISIT colon screening Encounters Encounter Location Date Provider Diagnosis [facility] [place] [address] [place], [place] [phone] 04/16/2024 Cristóbal Cortes PLAN OF TREATMENT No Information
--- OUTSIDE RECORDS SUMMARY | 2024-09-08 09:13 | XMS_ITS ---
Author Organization [facility] Address [address] [place] [address] Care Team Providers Care Weigher Alloy Name Role Phone Rowan Colby MD Primary Care Provider Cristóbal Zuleta Unavailable [phone] REASON FOR VISIT colon screening Encounters Encounter Location Date Provider Diagnosis [facility] [place] Out[place] [address], [place] [phone] 04/02/2024 Cristóbal Cortes PLAN OF TREATMENT No Information
--- OUTSIDE RECORDS SUMMARY | 2024-09-08 09:13 | XMS_ITS | Patient Health Record ---
Author Organization [facility] Address [address] [place] [address] Care Team Providers Care Sports Fitness And Wellness Director Name Role Phone Rowan Colby MD Primary Care Provider Cristóbal Zuleta [phone] ALLERGIES No Known Allergies RESULTS Component Value Reference Range Notes Pathology Reviewed date:06/07/2024 08:00:05 AM Interpretation: Performing Lab:[facility], [address] [place] [phone] Notes/Report: REASON FOR REFERRAL No Information IMMUNIZATIONS Vaccine Route Administration Date Status Comme nts Influenza Unknown 09/26/2023 Refused SOCIAL HISTORY Sex Assigned At : Social History Observation Description Sex Assigned At Unknown Alcohol Screen Question Answer Notes Did you have a drink contain ing alcohol in the past year? Yes How often did you have a dri nk containing alcohol in the past year? 4 or more times a week (4 points) How many drinks did you have on a typical day when you were drinking in the past year? 3 or 4 drinks (1 point) How often did you have 6 or more drinks on one occasion in the past year? Never (0 point) Points 5 Interpretation Positive PROBLEMS Problem Type ICD Code Onset Dates Problem Status W/U Status Risk SNOMED Code Notes Problem Encounter for screening for malignant neoplasm of colon (Z12.11) Active confirmed 917578960 Problem History of adenomatous polyp of colon (Z86.010) Active confirmed 568294589 Problem Diverticulosis of large intestine without perforation or abscess without bleeding (K57.30) Active confirmed Diverticul ar disease of colon (345678090) Problem Preprocedural examination (Z01.818) Active confirmed [id number] VITAL SIGNS Temperature 98.3 degrees Fahrenheit 09/26/2023 Blood pressure diastolic 00 mm Hg 09/26/2023 Height 70.50 in 09/26/2023 Blood pressure systolic 000 mm Hg 09/26/2023 Weight 200 lb 4 oz lbs 09/26/2023 BMI 28.32 kg/m2 09/26/2023 Encounters Encounter Location Date Provider Diagnosis [facility] [place] Out[place] [address] [place] [id number] 12/29/2023 Cristóbal Cortes [facility] [place] Outpatient [address], [place] [id number] 04/02/2024 Cristóbal Cortes [facility] [place] Out[place] [address], [place] [id number] 04/16/2024 Cristóbal Cortes [facility] [place] Outpatient [address] [place] [id number] 05/12/2024 Cristóbal Cortes Colon cancer screeni ng Z12.11 ; Colon polyps K63.5 ; Rectal polyp K62.1 ; Diverticulosis of large intestine without perforation or abscess without bleeding K57.30 and Other hemorrhoids K64.8 [facility] [address] [place] [phone] 09/26/2023 Cristóbal Cortes History of adenomato us polyp of colon Z86.010 ; Preprocedural examination Z01.818 and Encounter for screening for malignant neoplasm of colon Z12.11 [facility] [address] [place] [phone] 12/18/2023 Cristóbal Cortes ASSESSMENTS Encounter Date Diagnosis Assessment Notes Treatment Notes Treatment Clinical Notes 05/12/2024 Colon cancer screening (ICD-10 - Z12.11) 05/12/2024 Colon polyps (ICD-10 - K63.5) 09/26/2023 History of adenomatous polyp of colon (ICD-10 - Z86.010) 09/26/2023 Preprocedural examination (ICD-10 - Z01.818) 05/12/2024 Rectal polyp (ICD-10 - K62.1) 09/26/2023 Encounter for screening for malignant neoplasm of colon (ICD-10 - Z12.11) 05/12/2024 Diverticulosis of large intestine without perforation or abscess without bleeding (ICD-10 - K57.30) 05/12/2024 Other hemorrhoids (ICD-10 - K64.8) PLAN OF TREATMENT Future Test Test Name Order Date COLONOSCOPY 06/03/2012 COLONOSCOPY 12/31/2017 COLONOSCOPY 09/26/2023 Insurance Providers Payer Name Payer Address Payer Phone Subscriber Number Group Number Insured Name Patient Relationship to Insured Coverage Start Date Coverage End Date [facility] [address] [facility] [place] [phone] [id number] PRANAY DOSS Self - patient is the insured MEDICAL (GENERAL) HISTORY Medical History History ICD Code Denies PA,DM,CVA,Lung disease,renal dise ase Screening colonoscopy in 07/22 013--1 tubular adenoma and hyperplastic polyps, internal hemorrhoids Negative colonoscopy 01/2018 Surgical History Surgery Date(Month/Year) Hemorrhoid surgery Meniscus surgery on knee left 10/2022 C-spine 2020 Carpal tunnel
[2024-09-08 10:54] LABS: Cholesterol 222 mg/dL (<200); HDL Cholesterol 52 mg/dL (>40); LDL Cholesterol Calculated 147 mg/dL (<100); Triglycerides 116 mg/dL (<150)
== END 2024-09-08 09:03 | disposition home or self-care (01) ==
LOC: HO.HMGCLDS 09:02
PROVIDERS: PCP Internal Medicine; Visit Provider Internal Medicine
DX: E78.5 Hyperlipidemia, unspecified (principal)
CPT/HCPCS: 36415; 80061

== ENCOUNTER 2025-02-10 08:20 | Outpatient (REF) | payer OTHER, SELFPAY ==
[2025-02-10 10:09] LABS: MANUAL DIFF FLAG NO
[2025-02-10 10:16] LABS: Appearance Urine Clear; Glucose Urine UA Negative (Negative); PH 7.0 (5.0-9.0); Specific Gravity - Urine 1.020 (1.005-1.025)
[2025-02-10 10:24] LABS: Hematocrit 45.5 % (42.0-52.0); Hemoglobin 15.6 g/dl (14.0-18.0); Imm Gran Abs Auto 0.00 X10*3/uL (0.00-0.03); Imm Gran Pct Auto 0.0 % (0.0-0.4); Lymphocytes Absolute Auto 1.6 X10*3/uL (1.2-4.9); Mean Corpuscular HGB Conc 34.3 g/dl (31.0-36.0); Mean Corpuscular Hemoglobin 31.8 pg (27.0-33.0); Mean Corpuscular Volume 92.7 fL (80.0-98.0); NRBC Abs Auto 0.000 X10*3/uL (0.0-0.012); NRBC Pct Auto 0.0 /100WBC (0.0-0.2); Platelet Count 235 X10*3/uL (160-400); Red Blood Count 4.91 X10*6/uL (4.60-5.80); White Blood Count 3.7 X10*3/uL (4.8-10.8)
[2025-02-10 10:54] LABS: Alanine Aminotransferase 31 U/L (0-40); Albumin Level 4.4 g/dL (3.5-5.0); Alkaline Phosphatase 54 U/L (39-117); Anion Gap 8 (12-20); Aspartate Amino Transferase 24 U/L (5-37); Blood Urea Nitrogen 14 mg/dL (9-16); Calcium 8.9 mg/dL (8.4-10.2); Carbon Dioxide 28 mmol/L (22-29); Chloride 108 mmol/L (96-108); Cholesterol 209 mg/dL (<200); Estimated Glomerular Filt Rate > 60; HDL Cholesterol 50 mg/dL (>40); Potassium 4.1 mmol/L (3.3-5.1); Sodium 140 mmol/L (135-145); Total Protein 7.0 g/dL (6.5-8.0); Triglycerides 104 mg/dL (<150)
[2025-02-10 11:07] LABS: PSA,Total (Free>4and<10) 0.97 ng/mL (0.00-4.00)
== END 2025-02-10 08:21 | disposition home or self-care (01) ==
LOC: HO.HMGCLDS 08:20
PROVIDERS: PCP Internal Medicine; Visit Provider Internal Medicine
DX: Z00.00 Encounter for general adult medical examination without abnormal findings (principal); E78.5 Hyperlipidemia, unspecified
CPT/HCPCS: 36415; 80053; 80061; 81003; 84153; 85025

== ENCOUNTER 2025-02-16 08:57 | Outpatient (AMB) | payer OTHER, SELFPAY ==
[2025-02-16 09:08] VITALS: BP 132/80; PULSE 68; O2SAT 97; BMI 27.2
--- NOTE | 2025-02-16 09:08 | MHC.PC.OV ---
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 PFSH Medical History (Updated 02/16/25 @ 09:48 by Rowan Colby MD) Cluster headache Cervical stenosis of spine Hyperlipidemia Leg weakness, bilateral Arthralgia Myalgia Surgical History (Updated 02/16/25 @ 09:48 by Rowan Colby MD) Hx of colonoscopy Hx of left inguinal hernia repair H/O knee surgery H/O hemorrhoidectomy History of bilateral carpal tunnel release Hx of neck surgery Family History Mother No problems noted. Father No problems noted. Social History Housing: House Are you a primary foster care worker to a significant other at home: No Do you presently have visiting nurse or other home services: No Alcohol intake: current Alcohol intake frequency: 3 or more drinks per day Patient Tobacco Use Status: Current someday Tobacco user Tobacco use type: Cigar e-Cigarette/Vaping Use: Never Used Second Hand Smoke Exposure: No service: No Current occupational status: employed and retired Current occupation: retired from [employer] [place]/ right hand dominant Current occupational exposures/hazards: No Cognitive needs: No Hearing needs: No Vision needs: Yes Questionnaire PHQ-9 Over the last 2 weeks, how often have you been bothered by any of the following problems? 1. Little interest or pleasure in doing things: not at all 2. Feeling down, depressed, or hopeless: not at all 3. Trouble falling or staying asleep, or sleeping too much: not at all 4. Feeling tired or having little energy: not at all 5. Poor appetite or overeating: not at all 6. Feeling bad about yourself - or that you are a failure or have let yourself or your family down: not at all 7. Trouble concentrating on things, such as reading the newspaper or watching television: not at all 8. Moving or speaking so slowly that other people could have noticed. Or the opposite - being so fidgety or restless that you have been moving around a lot more than usual: not at all 9. Thoughts that you would be better off or of hurting yourself in some way: not at all Total score: 0 Depression Screening Interpretation: Negative Depression Screening Done: Yes 15639 - PHQ-9 Billing: Yes Source: Developed by Drs. Cristóbal Freeman, Evonne Quintana, Elie Lyn and colleagues, with an educational bairon from [employer]. Thrive Questionnaire Date Thrive assessed: 02/16/25 I am a: Patient What is your living situation today?: I have a steady place to live Within the past 12 months, did the food you bought not last and you didn't have the money to get more?: Never true Within the past 12 months, did you worry whether your food would run out before you got money to buy more?: Never true Do you have trouble paying for medicines?: No Do you have trouble getting transportation to medical appointments?: No Do you have trouble paying your heating and electricity bill?: No Do you have trouble taking care of your child, family member or friend?: No Do you have trouble with day-to-day activities such as bathing, preparing meals, shopping, managing finances, etc.?: No Are you currently unemployed and looking for a job?: No Are you interested in more education?: No Please select the resources that you would like help with: None Currently or been in a relationship where the following occur: No concerns reported THRIVE Score: 0 AUDIT C Alcohol Use Questionnaire (AUDIT-C) 1. How often do you have a drink containing alcohol?: 4 or more times a week 2. How many drinks containing alcohol do you have on a typical day when you are drinking?: 3 or 4 3. How often do you have six or more drinks on one occasion?: Monthly Total Score: 7 Score Reviewed/Action Taken: Yes MED-7 AMB Questionnaire MED-7 Date MED - 7 assessed: 02/16/25 Feeling nervous, anxious, or on edge: 0 = Not at all Not being able to stop or control worryin = Not at all Worrying too much about different things: 0 = Not at all Trouble relaxin = Not at all Being so restless that it is hard to sit still: 0 = Not at all Becoming easily annoyed or irritable: 0 = Not at all Feeling afraid as if something awful might happen: 0 = Not at all Total MED-7 score (0-4 normal; 5-9 mild; 10-14 moderate; 15-21 severe): 0 Source: Developed by Drs. Cristóbal Freeman, Evonne Quintana, Elie Lyn and colleagues, with an educational bairon from [employer]. MED-7 Assessment Billing MED-7 Assessment Tool: MED-7 Assessment 02773 Review of Systems Const All systems reviewed & are unremarkable except as noted in HPI and below Eyes Reports no additional complaints ENT Reports no additional complaints Card Reports no additional complaints Resp Reports no additional complaints GI Reports no additional complaints Reports no additional complaints Physical exam (Primary Care) Vital Signs: Last Vital Signs Pulse 68 02/16/25 09:08 BP 132/80 02/16/25 09:08 Pulse Ox 97 02/16/25 09:08 BMI result Body Mass Index 27.2 Tobacco/Smoking Status: Tobacco use Status Tobacco use date assessed 02/16/25 02/16/25 09:09 Patient Tobacco Use Status Current someday Tobacco 02/16/25 09:09 Tobacco use type Cigar 02/16/25 09:09 e-Cigarette/Vaping Use Never Used 02/16/25 09:09 PHQ-9: PHQ-9 Score PHQ-9: Total score 0 02/16/25 09:09 Depression Screening Interpretation: Negative Thrive Assessment: Date of Thrive Assessment Date Thrive assessed 02/16/25 02/16/25 09:09 Currently or been in a relationship where the following occur: No concerns reported Const General: no acute distress HENMT Head: Yes normal to inspection General nose exam: Normal external nose present Face and sinus: Yes normal facial exam Throat: Yes posterior oropharynx normal Eyes General: appearance normal, both eyes and all related structures Neck Neck: Yes no lymphadenopathy and Yes supple Resp Effort & Inspection: normal respiratory effort Auscultation: clear to auscultation bilaterally Cardio Rhythm: regular rhythm Heart sounds: S1 normal heart sound present and S2 normal heart sound present GI Inspection: Yes normal to inspection Palpation (GI): Soft to palpation Percussion: Yes normal to percussion Auscultation: normal bowel sounds Coding Level of Care Code Est Pt Prev Care 40-64y(54461) Diagnoses Annual physical exam Z00.00 Additional Codes MED-7 Assessment Billing - MED-7 Assessment Tool: MED-7 Assessment 07779 ([id number]) PHQ-9 - 70589 - PHQ-9 Billing: Yes ([id number]) Assessment & Plan Assessment & Plan (1) Annual physical exam: Code(s): Z00.00 - Encounter for general adult medical examination without abnormal findings Category: Medical Plan: well balanced diet, regular exercise discussed with the patient. He is up-to-date with colonoscopy. Orders: Orders Comprehensive [place]. Panel Fast 1 Year R73.9 - Hyperglycemia, unspecified, Z00.00 - Encounter for general adult medical examination without abnormal findings PSA,Total (Free>4and<10) 1 Year R73.9 - Hyperglycemia, unspecified, Z00.00 - Encounter for general adult medical examination without abnormal findings Lipid Panel 1 Year R73.9 - Hyperglycemia, unspecified, Z00.00 - Encounter for general adult medical examination without abnormal findings Complete Blood Count Auto Diff 1 Year R73.9 - Hyperglycemia, unspecified, Z00.00 - Encounter for general adult medical examination without abnormal findings UA w Microscopic 1 Year R73.9 - Hyperglycemia, unspecified, Z00.00 - Encounter for general adult medical examination without abnormal findings Vitamin B12 and Folate 1 Year R73.9 - Hyperglycemia, unspecified, Z00.00 - Encounter for general adult medical examination without abnormal findings
== END 2025-02-16 09:50 | disposition home or self-care (01) ==
LOC: HO.HMCC 08:57
PROVIDERS: PCP Internal Medicine; Visit Provider Internal Medicine
DX: Z00.00 Encounter for general adult medical examination without abnormal findings (principal)

== ENCOUNTER → 2025-02-16 08:57 | Outpatient (BNVA) | payer OTHER, SELFPAY | PROVIDERS: PCP Internal Medicine; Visit Provider Internal Medicine | DX: Z00.00 Encounter for general adult medical examination without abnormal findings (principal); R73.9 Hyperglycemia, unspecified | CPT/HCPCS: 96127 ==